=== PATIENT | female | born 1960 | race Caucasian/White ===

== ENCOUNTER 2017-07-17 10:27 | Outpatient (CLI) | payer OTHER ==
--- NOTE | 2017-07-17 12:52 | RAD ---
LEFT HIP TWO VIEWS: HISTORY: A 57-year-old female with left hip pain and low back pain following a fall. COMPARISON: 07/22/2006 FINDINGS: There is residual from a previous intramedullary maria guadalupe that had been in place to stabilize the left fe mur, which has been removed. There is some myositis ossificans, which is stable. Mild left hip christina nt arthrosis. No evidence for acute fracture. IMPRESSION: 1. No acute fracture. 2. Residual changes from prior left femur intramedullary maria guadalupe, which has been previously removed, st able from prior study. POS: [facility]
--- NOTE | 2017-07-17 12:53 | RAD ---
RIGHT HIP TWO VIEWS: HISTORY: A 57-year-old female with right hip pain following a fall several weeks ago. FINDINGS: Mild degenerative changes right hip joint. No acute fracture or dislocation. IMPRESSION: 1. No fracture or dislocation. 2. Degenerative changes. POS: [facility]
== END 2017-07-17 10:28 | disposition home or self-care (01) ==
LOC: TBSIIMAG 10:27
PROVIDERS: ATTEND Physician Assistant
DX: M25.551 Pain in right hip (principal); M54.9 Dorsalgia, unspecified; M25.552 Pain in left hip

== ENCOUNTER 2017-08-14 09:03 | Outpatient (CLI) | payer OTHER ==
--- NOTE | 2017-08-14 11:01 | CT ---
CT LUMBAR SPINE WITHOUT CONTRAST: Comparison: 01-25-09 History: Lumbar radiculopathy. Low back pain, extending down both lower extremities, right greater th an left. Technique: CT lumbar spine is performed without intravenous gadolinium administration. Multisequentia l, multiplanar imaging is performed. FINDINGS: Lumbar spine vertebral body height is maintained. There is no fracture. No spondylolisthesis or spond ylolysis. Visualized solid organs are grossly unremarkable. Symmetric attenuation of the psoas muscles. Atheros clerosis of non-aneurysmal aorta. Visualized alimentary canal is unremarkable. Coronal reformatted images do not demonstrate any abnormal alignment. T11-12: No high grade central canal stenosis or high grade neural foraminal narrowing. T12-L1: No high grade central canal stenosis. No high grade foraminal narrowing. L1-2: No high grade central canal stenosis or high grade foraminal narrowing. L2-3: No high grade central canal stenosis or high grade foraminal narrowing. L3-4: No high grade central canal stenosis or high grade foraminal narrowing. Minimal ligamentum flav um/ ===== is present. L4-5: Generalized disc bulge. No high grade central canal stenosis or high grade foraminal narrowing. L5-S1: Generalized disc bulge. No high grade central canal stenosis or high grade foraminal narrowing . IMPRESSION: No high grade central canal stenosis or high grade foraminal narrowing. POS: [facility]
== END 2017-08-14 09:04 | disposition home or self-care (01) ==
LOC: TBSIIMAG 09:03
PROVIDERS: ATTEND Neurological Surgery
DX: M54.16 Radiculopathy, lumbar region (principal)
CPT/HCPCS: 72131

== ENCOUNTER 2017-12-17 11:37 | Outpatient (CLI) | payer OTHER ==
[2017-12-17 13:33] LABS: PTT 32.3 SEC (22.9-36.1)
[2017-12-17 13:37] LABS: #Basophils 0.1 thou/uL (0.0-0.2); #Eosinphils 0.2 thou/uL (0.0-0.7); #Lymphocytes 3.3 thou/uL (1.20-3.40); #Monocytes 0.6 thou/uL (0.11-0.59); %Basophils 0.9 % (0.0-1.0); %Eosinophils 2.5 % (0.0-10.0); %Lymphocytes 35.7 % (21.0-51.0); %Monocytes 6.4 % (0.0-10.0); %Neutrophils 54.6 % (42.0-75.0); Hemoglobin 14.8 g/dL (12.0-16.0); Mean Corpuscular Hemoglobin 33.3 pg (27.0-31.0); Mean Platelet Volume 7.1 fL (7.4-10.4); Platelet Count 233 thou/uL (130-400); RBC Distribution Width 12.1 % (11.5-14.5); Red Blood Cell (RBC) Count 4.44 mill/uL (4.20-5.40); White Blood Cell (WBC) Count 9.2 thou/uL (4.8-10.8)
[2017-12-17 13:38] LABS: INR-International Normal Ratio 1.1; Prothrombin Time 14.4 SEC (12.0-14.7)
[2017-12-17 14:01] LABS: ALT (SGPT) 27 U/L (8-55); AST (SGOT) 34 U/L (5-34); Albumin 3.7 g/dL (3.5-5.0); Alkaline Phosphatase 121 U/L (40-150); Anion Gap 12 mmol/L (10-20); BUN (Urea Nitrogen) 6 mg/dL (9.8-20.1); Bilirubin, Total 0.4 mg/dL (0.2-1.2); Calc. Creatinine Clearance 0 mL/min (70-130); Calcium 9.3 mg/dL (7.8-10.44); Carbon Dioxide 23 mmol/L (22-29); Chloride 106 mmol/L (98-107); Estimated GFR-MDRD 75; Globulin 3.7 g/dL (2.4-3.5); Glucose 233 mg/dL (70-105); Potassium 3.8 mmol/L (3.5-5.1); Protein, Total 7.4 g/dL (6.0-8.3); Sodium 137 mmol/L (136-145)
== END 2017-12-17 11:38 | disposition home or self-care (01) ==
LOC: LABBT 11:37
PROVIDERS: ATTEND Internal Medicine Cardiovascular Disease
DX: Z01.818 Encounter for other preprocedural examination (principal); R07.9 Chest pain, unspecified
CPT/HCPCS: 80053; 85025; 85610; 85730; 93005; 93010

== ENCOUNTER → 2017-12-20 | Day surgery (SDC) | payer OTHER ==
[2017-12-17 11:56] VITALS: BMI 31.4
[~2017-12-20] MED LIST: Diazepam 5 MG TAB ONE; Fentanyl 100 MCG/2 ML VIAL ONE; Iopamidol 370 76% 100 ML VIAL ONE; Lidocaine 1% (PF) 30 ML VIAL ONE; Midazolam HCl 2 mg/2 ml Vial ONE
== END ==
LOC: CCL 07:55
PROVIDERS: ATTEND Internal Medicine Cardiovascular Disease
PROC: 4A023N7 Measurement of Cardiac Sampling and Pressure, Left Heart, Percutaneous Approach (ICD-10-PCS; principal; 2017-12-20)
PROC: B2151ZZ Fluoroscopy of Left Heart using Low Osmolar Contrast (ICD-10-PCS; principal; 2017-12-20)
DX: R07.9 Chest pain, unspecified (principal); B18.2 Chronic viral hepatitis C; E11.9 Type 2 diabetes mellitus without complications; E78.00 Pure hypercholesterolemia, unspecified; F41.9 Anxiety disorder, unspecified; F17.200 Nicotine dependence, unspecified, uncomplicated; I10 Essential (primary) hypertension; I20.9 Angina pectoris, unspecified; J44.9 Chronic obstructive pulmonary disease, unspecified; K21.9 Gastro-esophageal reflux disease without esophagitis; M19.90 Unspecified osteoarthritis, unspecified site; Z79.4 Long term (current) use of insulin; Z79.82 Long term (current) use of aspirin; Z79.899 Other long term (current) drug therapy; Z88.6 Allergy status to analgesic agent; Z88.8 Allergy status to other drugs, medicaments and biological substances; Z91.018 Allergy to other foods
CPT/HCPCS: 36416; 93458; 99152; 99153; C1769; G0278; J1644; J2001; J2250; J3010

== ENCOUNTER 2018-01-22 16:10 | Outpatient (CLI) | payer OTHER ==
[2018-01-22 16:49] LABS: Mean Corpuscular HGB CONC 34.3 g/dL (32.0-36.0); Mean Corpuscular Hemoglobin 34.3 pg (27.0-31.0); Mean Platelet Volume 6.9 fL (7.4-10.4); Platelet Count 236 thou/uL (130-400); Red Blood Cell (RBC) Count 4.38 mill/uL (4.20-5.40); White Blood Cell (WBC) Count 10.1 thou/uL (4.8-10.8)
[2018-01-22 16:55] LABS: Prothrombin Time 13.7 SEC (12.0-14.7)
[2018-01-22 17:10] LABS: ALT (SGPT) 28 U/L (8-55); AST (SGOT) 26 U/L (5-34); Albumin 3.7 g/dL (3.5-5.0); Alkaline Phosphatase 122 U/L (40-150); Anion Gap 13 mmol/L (10-20); BUN (Urea Nitrogen) 6 mg/dL (9.8-20.1); Bilirubin, Total 0.3 mg/dL (0.2-1.2); Calc. Creatinine Clearance 0 mL/min (70-130); Calcium 8.7 mg/dL (7.8-10.44); Carbon Dioxide 21 mmol/L (22-29); Chloride 109 mmol/L (98-107); Estimated GFR-MDRD 81; Globulin 3.2 g/dL (2.4-3.5); Glucose 131 mg/dL (70-105); Protein, Total 6.9 g/dL (6.0-8.3); Sodium 139 mmol/L (136-145)
--- NOTE | 2018-01-23 20:32 | EKG ---
Test Reason : Blood Pressure : / mmHG Vent. Rate : 076 BPM Atrial Rate : 076 BPM P-R Int : 202 ms QRS Dur : 086 ms QT Int : 438 ms P-R-T Axes : 094 066 091 degrees QTc Int : 492 ms Normal sinus rhythm Low voltage QRS Septal infarct (cited on or before 17-DEC-2017) Abnormal ECG When compared with ECG of 17-DEC-2017 11:43, No significant change was found Confirmed by CUBA MARTINEZ, . SThong (4) on 01/23/2018 8:31:54 PM Referred By: JONATHAN Confirmed By:DR. Munira BRINK MD
== END 2018-01-22 16:11 | disposition home or self-care (01) ==
LOC: LABBT 16:10
PROVIDERS: ATTEND Internal Medicine Cardiovascular Disease
DX: Z01.818 Encounter for other preprocedural examination (principal); I70.213 Atherosclerosis of native arteries of extremities with intermittent claudication, bilateral legs; R94.31 Abnormal electrocardiogram [ECG] [EKG]
CPT/HCPCS: 80053; 85027; 85610; 85730; 93005; 93010

== ENCOUNTER 2018-01-25 05:55 | Day surgery (SDC) | payer OTHER ==
[2018-01-22 16:31] VITALS: BMI 30.9
[2018-01-25 07:51] LABS: Cardiac Risk 3.7 (Less than 4.5)
[2018-01-25] MEDS ORDERED: Lidocaine 1% (PF) 30 ML VIAL ONE (08:40)
[2018-01-25] MEDS ORDERED: Fentanyl 100 MCG/2 ML VIAL ONE (09:55)
[2018-01-25] MEDS ORDERED: Midazolam HCl 2 mg/2 ml Vial ONE (09:55)
[2018-01-25] MEDS ORDERED: Heparin 10,000 UNITS/1 ML VIAL ONE (10:04)
[2018-01-25] MEDS ORDERED: Clopidogrel Bisulfate 300 MG TAB ONE (10:37)
[2018-01-25] MEDS ORDERED: Iopamidol 370 76% 100 ML VIAL ONE (11:46)
[2018-01-25] MEDS ORDERED: Iopamidol 370 76% 50 ML VIAL FS ONE (11:46)
--- NOTE | 2018-01-25 13:12 | CCL ---
CARDIAC PROCEDURE DATE OF SERVICE: 01/25/2015. PREPROCEDURE DIAGNOSIS: Peripheral vascular disease with claudication. PREPROCEDURE DIAGNOSIS: Peripheral vascular disease with claudication. PROCEDURES PERFORMED: 1. Selective abdominal aortography with runoff. 2. Selective right common iliac angiography. 3. Selective left common femoral angiography with runoff. 4. Percutaneous transluminal angioplasty with stent placement to the ostium of the right common juaquin c with an 8.0 x 27 mm balloon expandable stent. ESTIMATED BLOOD LOSS: 50 mL. COMPLICATIONS: None apparent. SAMPLES OBTAINED: ACTs. SEDATION: Under the physician's supervision, administered intravenously for moderate sedation. Pulse oximetry, heart rate and blood pressure were administered intravenously for sedation. The physician spent a total of 30 minutes of face to face during this time during sedation with the patient. FINDINGS: 1. Ostium of the right iliac artery has 90% obstruction with a 50 mmHg gradient. Widely patent righ t lower extremity circulation all the way down to good 2-vessel runoff. 2. Abdominal aorta is widely patent with no aneurysmal dilatations or dissections apparent. SUMMARY: Ms. West is a pleasant 57-year-old white female who comes to the catheterization lab for evaluation d ilatation and claudication. She was prepped and draped in the usual sterile fashion. Consents were signed and verified. Timeout was performed. Access was obtained with a 6-Tajik long sheath on the right femoral artery with ultrasound guidance. An Omni Flush catheter passed the lesion after we set up mechanic crown assembly machine ssed it over the J wire and selectively engaged the abdominal aorta where selective angiography was d one. We then advanced a 6.0 x 20 mm balloon and predilated the area of concern. We then advanced an 8.0 x 27 mm balloon expandable stent to the area of concern and this was deployed successfully. She had about a 50 mmHg gradient that went down to about 2 or 3 mmHg. She tolerated the procedure well. For anticoagulation, heparin was given. She was loaded with Plavix. Manual pressure will be held once ACT is below 200. RECOMMENDATIONS: 1. Optimum medical therapy and risk factor modification. 2. Bed rest and ambulation. 3. Dual therapy for a minimum of 3 months. 4. Follow up in the office in 1 month. POS: [facility]
== END 2018-01-25 14:00 | disposition home or self-care (01) ==
LOC: CCL 05:55
PROVIDERS: ATTEND Internal Medicine Cardiovascular Disease
PROC: 047 Lower Arteries, Dilation (ICD-10-PCS; principal; 2018-01-25)
DX: I70.213 Atherosclerosis of native arteries of extremities with intermittent claudication, bilateral legs (principal); F17.210 Nicotine dependence, cigarettes, uncomplicated; E78.00 Pure hypercholesterolemia, unspecified; F41.9 Anxiety disorder, unspecified; I10 Essential (primary) hypertension; J45.909 Unspecified asthma, uncomplicated; K21.9 Gastro-esophageal reflux disease without esophagitis; J44.9 Chronic obstructive pulmonary disease, unspecified; E11.9 Type 2 diabetes mellitus without complications; M19.90 Unspecified osteoarthritis, unspecified site; Z91.018 Allergy to other foods
CPT/HCPCS: 36416; 37221; 76942; 80061; 85347; 99152; 99153; C1725; C1769; C1876; J1644; J2001; J2250; J3010

== ENCOUNTER 2018-05-14 00:47 | Emergency (ER) | payer OTHER ==
[2018-05-14 01:50] LABS: Hemoglobin 16.8 g/dL (12.0-16.0); Mean Corpuscular HGB CONC 35.4 g/dL (32.0-36.0); Mean Corpuscular Hemoglobin 35.1 pg (27.0-31.0); Mean Corpuscular Volume 99.2 fL (78.0-98.0); Mean Platelet Volume 6.5 fL (7.4-10.4); Platelet Count 370 thou/uL (130-400); RBC Distribution Width 11.9 % (11.5-14.5); Red Blood Cell (RBC) Count 4.78 mill/uL (4.20-5.40); White Blood Cell (WBC) Count 16.2 thou/uL (4.8-10.8)
[2018-05-14 01:55] LABS: Bilirubin Negative (Negative); Blood, Urine Negative (Negative); Clarity CLEAR (Clear); Glucose, Urine (Dipstick) Negative (Negative); Leukocyte Small (Negative); Nitrite Negative (Negative); Protein, Urine (Dipstick) Negative (Neg-Trace); Specific Gravity, Urine 1.012 (1.002-1.036)
[2018-05-14 01:57] LABS: Bacteria/HPF None Seen HPF (None Seen); Hyaline Casts/LPF 0-3 HYALINE CAST LPF (0-3 Hyaline); Pathc Cast-AUWi Flag 0.29 (0-2.49); Squamous Epithelial 0-3 HPF (0-3); WBC/HPF 0-3 HPF (0-3)
[2018-05-14 01:59] LABS: ALT (SGPT) 13 U/L (8-55); AST (SGOT) 15 U/L (5-34); Alcohol Less than 10 mg/dL (Less than 10); Alkaline Phosphatase 103 U/L (40-150); Anion Gap 14 mmol/L (10-20); BUN (Urea Nitrogen) 14 mg/dL (9.8-20.1); Bilirubin, Total 0.9 mg/dL (0.2-1.2); Calc. Creatinine Clearance 0 mL/min (70-130); Calcium 9.6 mg/dL (7.8-10.44); Carbon Dioxide 21 mmol/L (22-29); Chloride 101 mmol/L (98-107); Estimated GFR-MDRD 79; Globulin 3.6 g/dL (2.4-3.5); Glucose 72 mg/dL (70-105); Potassium 3.6 mmol/L (3.5-5.1); Protein, Total 7.6 g/dL (6.0-8.3); Salicylate Less than 8.0 mg/dL (15.0-30.0); Sodium 132 mmol/L (136-145)
[2018-05-14 02:00] LABS: Alcohol Less than 10 mg/dL (Less than 10); CK (CPK) 88 U/L (29-168)
[2018-05-14 02:06] LABS: Lymphocytes 47 % (21-51); MDiff Complete? YES; Macrocytosis SLIGHT = 6-15 cells (100X) (0-5/hpf); Monocytes 1 % (0-10); Neutrophil 52 % (42-75); PLT Morphology Comment Appears Adequate; Polychromasia SLIGHT = 2-3 cells (100X) (0-2/hpf)
[2018-05-14 02:13] LABS: Amphetamine Not Detected (NotDetected); Barbiturates Screen Not Detected (NotDetected); Benzodiazepine Screen Not Detected (NotDetected); Cocaine Metabolite Screen Not Detected (NotDetected); Medtox Control Line Valid? VALID (VALID); Medtox Reader # READER 4; Methadone Not Detected (NotDetected); Methamphetamine Not Detected (NotDetected); Opiate Screen Detected (NotDetected); Oxycodone Screen Not Detected (NotDetected); Phencyclidine (PCP) Not Detected (NotDetected); THC/Cannabinoid Screen Not Detected (NotDetected); Tricyclic Screen Detected (NotDetected)
[2018-05-14] MEDS ORDERED: Acetaminophen 500 MG TAB ONE ×2 (05:02→15:30)
[2018-05-14 11:08] LABS: #Basophils 0.2 thou/uL (0.0-0.2); #Eosinphils 0.3 thou/uL (0.0-0.7); #Lymphocytes 5.5 thou/uL (1.20-3.40); #Monocytes 0.9 thou/uL (0.11-0.59); #Neutrophils 7.3 thou/uL (1.40-6.50); %Basophils 1.2 % (0.0-1.0); %Eosinophils 1.9 % (0.0-10.0); %Monocytes 6.3 % (0.0-10.0); %Neutrophils 51.7 % (42.0-75.0); Hemoglobin 15.6 g/dL (12.0-16.0); Mean Corpuscular HGB CONC 32.9 g/dL (32.0-36.0); Mean Corpuscular Hemoglobin 33.8 pg (27.0-31.0); Mean Platelet Volume 6.8 fL (7.4-10.4); Platelet Count 295 thou/uL (130-400); Red Blood Cell (RBC) Count 4.63 mill/uL (4.20-5.40); White Blood Cell (WBC) Count 14.2 thou/uL (4.8-10.8)
[2018-05-14] MEDS ORDERED: Insulin Regular 300 UNITS/3 ML VIAL ONE (13:14)
[2018-05-14] MEDS ORDERED: TICAGRELOR 90 MG TABLET PO SCH (14:45)
--- NOTE | 2018-05-14 17:03 | RAD ---
CHEST TWO VIEWS: 05/14/18 COMPARISON: 07/16/13. HISTORY: Leukocytosis. FINDINGS: Atherosclerosis of the aorta. Normal cardiac silhouette. Pulmonary vessels and hilum are normal. Cost ophrenic angles are clear. Chronic changes, without consolidation or mass. No pneumothorax or osseous abnormalities. IMPRESSION: 1. No acute cardiopulmonary process. 2. Atherosclerosis. POS: [facility]
[2018-05-14] MEDS ORDERED: Lubiprostone 24 MCG CAP PO SCH (17:30)
[2018-05-14] MEDS ORDERED: Topiramate 100 MG TAB PO SCH (17:30)
[2018-05-14] MEDS ORDERED: Lisinopril 10 MG TAB PO SCH (17:30)
[2018-05-14] MEDS ORDERED: Atorvastatin Calcium 20 MG TAB PO SCH (17:30)
== END 2018-05-14 21:28 ==
LOC: ERS 00:47
DX: R45.851 Suicidal ideations (principal); E78.5 Hyperlipidemia, unspecified; I10 Essential (primary) hypertension; F90.9 Attention-deficit hyperactivity disorder, unspecified type; F31.9 Bipolar disorder, unspecified; Z79.4 Long term (current) use of insulin; Z79.899 Other long term (current) drug therapy
CPT/HCPCS: 36415; 36416; 71046; 80053; 80306; 80307; 81003; 81015; 82550; 84443; 85025; 96360; 96361; J1815

== ENCOUNTER 2018-06-20 10:13 | Outpatient (CLI) | payer OTHER ==
--- NOTE | 2018-06-20 13:00 | CT ---
CT ABDOMEN WITH AND WITHOUT IV CONTRAST: CT PELVIS WITH AND WITHOUT IV CONTRAST: 06/20/2018 HISTORY: Abdominal pain, nonspecific lymphadenitis. The patient states bilateral lower abdominal pain, loss o f appetite, and nausea. COMPARISON: CT abdomen and pelvis done at [facility] on 01/13/2011. FINDINGS: Linear interstitial density is seen in the right middle lobe, likely related to atelectasis. The kalpesh g bases otherwise appear clear. The liver remains enlarged in craniocaudal dimensions, measuring 22.2 cm. There is a tiny, subcentimeter, jco-iuoxr-qr-characterize, hypodense lesion in the mid portion of the right kidney. The spleen, pancreas, bilateral adrenal glands, left kidney, and decompressed urinary bladder demonst rate a normal CT appearance. There is evidence of a hysterectomy. Post cholecystectomy changes are seen. Vascular calcification is seen in the abdominal aorta and involving the iliac arteries. A calcified granuloma is seen in the liver. There is a mild, nonspecific, prominent gastrohepatic lymph node, measuring 1 cm in short axis dimens ion. No enlarged aortocaval lymph nodes are seen. There is evidence of prior post surgical changes, likely related to prior internal fixation of the le ft femur, with removal of maria guadalupe. IMPRESSION: 1. No acute findings are seen in the abdomen and pelvis. 2. Stable enlargement of liver in craniocaudal dimensions. 3. Vascular calcifications. 4. Tiny fat-containing umbilical hernia. POS: [facility]
[2018-06-20] MEDS ORDERED: Iopamidol 370 76% 100 ML VIAL ONE (13:17)
== END 2018-06-20 10:14 | disposition home or self-care (01) ==
LOC: BICCT 10:13
PROVIDERS: ATTEND Physician Assistant
DX: I88.9 Nonspecific lymphadenitis, unspecified (principal); R10.9 Unspecified abdominal pain; R16.0 Hepatomegaly, not elsewhere classified; I70.90 Unspecified atherosclerosis; K42.9 Umbilical hernia without obstruction or gangrene
CPT/HCPCS: 74178

== ENCOUNTER 2018-09-05 07:25 | Outpatient (CLI) | payer OTHER ==
--- NOTE | 2018-09-05 14:19 | NM ---
NUCLEAR MEDICINE GASTRIC EMPTYING: Radiopharmaceutical: 2.2 mCi Technetium 99M Sulfur colloid, oral ingestion. Indication: Dysphasia, unspecified. FINDINGS: Using geometric mean, gastric emptying half time is calculated at 108 minutes. 86% gastric emptying o ccurs at 234 minutes, which is the termination of the exam. IMPRESSION: Gastric emptying half time calculated at 108 minutes. POS: [facility]
== END 2018-09-05 07:26 | disposition home or self-care (01) ==
LOC: NM 07:25
PROVIDERS: ATTEND Physician Assistant Medical
DX: R13.10 Dysphagia, unspecified (principal); K21.9 Gastro-esophageal reflux disease without esophagitis; R10.84 Generalized abdominal pain; R11.0 Nausea; K59.09 Other constipation
CPT/HCPCS: 78264; A9541

== ENCOUNTER 2019-02-18 12:52 | Outpatient (CLI) | payer OTHER ==
--- NOTE | 2019-02-18 14:13 | MRI ---
MRI CERVICAL SPINE WITHOUT CONTRAST: HISTORY: Cervical radiculopathy. COMPARISON: 05/19/2008 FINDINGS: Appropriate T1 marrow signal intensity of the cervical vertebrae. No fracture. No significant STIR hyperintensity to suggest vertebral body edema or ligamentous injury. The visualized brain parenchyma and spinal cord have appropriate signal intensity. C2-C3: No significant central canal stenosis or neural foraminal narrowing. C3-C4: Generalized disc bulge. Mild flattening of the thecal sac. Nevertheless, no significant stan tral canal stenosis or neural foraminal narrowing. Minimal left uncovertebral hypertrophy. C4-C5: Broad-based disc osteophyte complex with a central/right paracentral component. Ventral suba rachnoid space is maintained. Mild central canal stenosis. Neural foramina are patent. C5-C6: Central disc osteophyte complex causing mass effect upon the thecal sac and deforming the cer vical cord. No cord signal abnormality. Mild central canal stenosis. Neural foramina are patent. C6-C7: No significant central canal stenosis. Neural foramina are patent. C7-T1: No significant central canal stenosis. Neural foramina are patent. T2 hyperintensity in the left neural foramen likely due to perineural sleeve cyst. IMPRESSION: Degenerative changes of the cervical spine, as detailed above. The greatest degree of central canal stenosis is at C5-C6, secondary to disc osteophyte complex. Nevertheless, there is only mild stenosis at this level. Transcribed Date/Time: 02/18/2019 2:43 PM
== END 2019-02-18 12:53 | disposition home or self-care (01) ==
LOC: BICMRI 12:52
PROVIDERS: ATTEND Neurological Surgery
DX: M47.22 Other spondylosis with radiculopathy, cervical region (principal); M48.02 Spinal stenosis, cervical region; M25.78 Osteophyte, vertebrae
CPT/HCPCS: 72141

== ENCOUNTER 2019-06-19 10:55 | Outpatient (CLI) | payer OTHER ==
--- NOTE | 2019-06-19 11:22 | MMO ---
Bilateral MAMMO Bilat Screen DDI. CLINICAL HISTORY: Patient is 59 years old and is seen for screening. The patient has no family history of breast cancer. The patient has no personal history of cancer. VIEWS: The views performed were: bilateral craniocaudal and bilateral mediolateral oblique. FILMS COMPARED: The present examination has been compared to prior imaging studies performed at [facility] on 06/11/2014, 06/17/2015, 06/22/2016 and 07/24/2017. This study has been interpreted with the assistance of computer-aided detection. MAMMOGRAM FINDINGS: There are scattered fibroglandular densities. There are no suspicious masses, suspicious calcifications, or new areas of architectural distortion. IMPRESSION: THERE IS NO MAMMOGRAPHIC EVIDENCE OF MALIGNANCY. A ROUTINE FOLLOW-UP MAMMOGRAM IN 1 YEAR IS RECOMMENDED. ACR BI-RADS Category 1 - Negative MAMMOGRAPHY NOTE: 1. A negative mammogram report should not delay a biopsy if a dominant of clinically suspicious mass is present. 2. Approximately 10% to 15% of breast cancers are not detected by mammography. 3. Adenosis and dense breasts may obscure an underlying neoplasm. Reported by: LEVON YANG MD Electonically Signed: [id number]
== END 2019-06-19 10:56 | disposition home or self-care (01) ==
LOC: BICMAMMO 10:55
PROVIDERS: ATTEND Physician Assistant
DX: Z12.31 Encounter for screening mammogram for malignant neoplasm of breast (principal)
CPT/HCPCS: 77067

== ENCOUNTER 2019-06-26 09:32 | Outpatient (CLI) | payer OTHER ==
--- NOTE | 2019-06-26 13:10 | ULT ---
ABDOMINAL ULTRASOUND WITH DOPPLER STUDIES: INDICATIONS: Hepatomegaly. TECHNIQUE: Hepatic Doppler study is performed with color Doppler and spectral analysis to the hepatic vessels. FINDINGS: Ultrasound images show enlarged liver with increased echogenicity, suggesting fatty infiltration. The common bile duct is dilated, measured at 1.2 cm. Evidence of mild intrahepatic ductal dilatation als o noted. The patient is status post cholecystectomy. The spleen is enlarged, measuring 12 cm. The visualized pancreas is unremarkable. The kidneys are not imaged. Doppler studies show normal hepatopetal blood flow in the portal veins, hepatic vein, hepatic artery and splenic vein. IMPRESSION: 1. Hepatomegaly with evidence of diffuse fatty infiltration. 2. Dilated intrahepatic and extrahepatic biliary ducts. 3. Normal Doppler studies to the hepatic vessels. POS: [facility]
== END 2019-06-26 09:33 | disposition home or self-care (01) ==
LOC: BICULT 09:32
PROVIDERS: ATTEND Physician Assistant Medical
DX: K21.9 Gastro-esophageal reflux disease without esophagitis (principal); R16.0 Hepatomegaly, not elsewhere classified; K59.09 Other constipation; K76.0 Fatty (change of) liver, not elsewhere classified; K83.8 Other specified diseases of biliary tract
CPT/HCPCS: 76705

== ENCOUNTER 2019-10-02 00:19 | Emergency (ER) | payer OTHER ==
[2019-10-02] MEDS ORDERED: Morphine 4 MG/ML VIAL ONE (01:26)
[2019-10-02 01:46] LABS: #Basophils 0.1 thou/uL (0.0-0.2); #Eosinphils 0.1 thou/uL (0.0-0.7); #Lymphocytes 2.9 thou/uL (1.20-3.40); #Monocytes 0.6 thou/uL (0.11-0.59); #Neutrophils 10.3 thou/uL (1.40-6.50); %Basophils 0.9 % (0.0-1.0); %Eosinophils 0.9 % (0.0-10.0); %Lymphocytes 20.6 % (21.0-51.0); %Monocytes 3.9 % (0.0-10.0); %Neutrophils 73.7 % (42.0-75.0); Hemoglobin 15.5 g/dL (12.0-16.0); Mean Corpuscular HGB CONC 33.5 g/dL (32.0-36.0); Mean Corpuscular Hemoglobin 33.3 pg (27.0-31.0); Mean Corpuscular Volume 99.4 fL (78.0-98.0); Mean Platelet Volume 6.7 fL (7.4-10.4); Platelet Count 302 thou/uL (130-400); RBC Distribution Width 11.7 % (11.5-14.5); Red Blood Cell (RBC) Count 4.64 mill/uL (4.20-5.40)
[2019-10-02 01:52] LABS: Prothrombin Time 13.2 SEC (12.0-14.7)
[2019-10-02 02:03] LABS: Phosphorus 3.6 mg/dL (2.3-4.7)
[2019-10-02 02:04] LABS: ALT (SGPT) 16 U/L (8-55); AST (SGOT) 16 U/L (5-34); Albumin 4.2 g/dL (3.5-5.0); Alkaline Phosphatase 95 U/L (40-110); Anion Gap 14 mmol/L (10-20); BUN (Urea Nitrogen) 11 mg/dL (9.8-20.1); Bilirubin, Total 0.5 mg/dL (0.2-1.2); Calc. Creatinine Clearance 0 mL/min (70-130); Calcium 9.6 mg/dL (7.8-10.44); Carbon Dioxide 23 mmol/L (22-29); Chloride 105 mmol/L (98-107); Estimated GFR-MDRD 74; Globulin 3.4 g/dL (2.4-3.5); Glucose 122 mg/dL (70-105); Magnesium 2.1 mg/dL (1.6-2.6); Potassium 3.9 mmol/L (3.5-5.1); Protein, Total 7.6 g/dL (6.0-8.3); Sodium 138 mmol/L (136-145)
[2019-10-02] MEDS ORDERED: HYDROcodone/Acetaminophen 5/325 mg Tablet ONE (02:20)
--- NOTE | 2019-10-02 08:01 | RAD ---
Chest AP view INDICATION: Preoperative evaluation COMPARISON: June 15, 2010 and July 16, 2013 FINDINGS: Lungs:There is new patchy interstitial and airspace opacity involving the left lower lobe some of whi ch could reflect subsegmental volume loss. This is superimposed on moderate COPD changes are stable. There is a stable calcified granuloma in the left upper lobe. Cardiac silhouette:The cardiomediastinal silhouette appears within normal limits. Pulmonary vasculature:Normal Pleural spaces:No pleural effusion or pneumothorax is demonstrated. Upper abdomen:No abnormality seen. Osseous structures: There is partial visualization of a comminuted proximal left humerus fracture, be tter detailed on separate performed radiographs of the left shoulder dated October 02, 2019. Additional findings:None. IMPRESSION: 1. Patchy interstitial and airspace opacity left lower lobe may reflect subsegmental volume loss. Rep eat 2 view chest x-ray is recommended. Pneumonia is not excluded. 2. COPD change and findings of prior granulomatous disease. 3. Comminuted left proximal humerus fracture.
--- NOTE | 2019-10-02 08:10 | RAD ---
Radiograph left shoulder 2 views: DATE: 10/02/2019 1:39 AM HISTORY: 59-year-old female with acute, traumatic shoulder pain after fall FINDINGS: There is a comminuted fracture of the humeral head with mild displacement. There is mild inferior sub luxation of the glenohumeral joint. IMPRESSION: Acute, comminuted, mildly displaced left humeral head fracture.
--- NOTE | 2019-10-02 08:40 | RAD ---
LEFT ELBOW 1 VIEW: HISTORY: Left elbow pain following an injury, fell out of bed. FINDINGS: Comminuted displaced ulnar olecranon fracture is seen on the single lateral view. Evidence for elbow joint effusion. IMPRESSION: Markedly comminuted displaced ulna olecranon fracture. POS: [facility]
== END 2019-10-02 03:08 | disposition home or self-care (01) ==
LOC: ERS 00:19
DX: S52.022A Displaced fracture of olecranon process without intraarticular extension of left ulna, initial encounter for closed fracture (principal); S42.212A Unspecified displaced fracture of surgical neck of left humerus, initial encounter for closed fracture; E78.5 Hyperlipidemia, unspecified; I10 Essential (primary) hypertension; E78.00 Pure hypercholesterolemia, unspecified; E11.9 Type 2 diabetes mellitus without complications; F31.9 Bipolar disorder, unspecified; F20.9 Schizophrenia, unspecified; F17.210 Nicotine dependence, cigarettes, uncomplicated; Z79.899 Other long term (current) drug therapy; Z79.4 Long term (current) use of insulin; Z79.82 Long term (current) use of aspirin; W06.XXXA Fall from bed, initial encounter
CPT/HCPCS: 29105; 71045; 80053; 83735; 84100; 85025; 85610; 86850; 86900; 86901; 93005; 96374; J2270

== ENCOUNTER 2019-10-04 16:08 | Observation (INO) | payer OTHER ==
[~2019-10-04 16:08] MED LIST changes: -Diazepam 5 MG TAB ONE; -Fentanyl 100 MCG/2 ML VIAL ONE; -Iopamidol 370 76% 100 ML VIAL ONE; +Iopamidol-370 76% 500 ML 1 ML ONE; -Lidocaine 1% (PF) 30 ML VIAL ONE; -Midazolam HCl 2 mg/2 ml Vial ONE
[2019-10-04 17:31] LABS: #Basophils 0.1 thou/uL (0.0-0.2); #Eosinphils 0.2 thou/uL (0.0-0.7); #Lymphocytes 3.8 thou/uL (1.20-3.40); #Monocytes 0.9 thou/uL (0.11-0.59); #Neutrophils 10.4 thou/uL (1.40-6.50); %Basophils 0.6 % (0.0-1.0); %Eosinophils 1.4 % (0.0-10.0); %Lymphocytes 24.8 % (21.0-51.0); %Monocytes 5.9 % (0.0-10.0); %Neutrophils 67.3 % (42.0-75.0); Hemoglobin 12.7 g/dL (12.0-16.0); Mean Corpuscular HGB CONC 32.6 g/dL (32.0-36.0); Mean Corpuscular Hemoglobin 32.5 pg (27.0-31.0); Mean Corpuscular Volume 99.8 fL (78.0-98.0); Mean Platelet Volume 6.9 fL (7.4-10.4); Platelet Count 286 thou/uL (130-400); RBC Distribution Width 11.7 % (11.5-14.5); Red Blood Cell (RBC) Count 3.91 mill/uL (4.20-5.40); White Blood Cell (WBC) Count 15.4 thou/uL (4.8-10.8)
--- NOTE | 2019-10-04 17:48 | RAD ---
EXAM: CHEST ONE VIEW: 10/04/19 HISTORY: Chest pain, left shoulder pain. FINDINGS: Comminuted fracture of the humeral head and neck region. Minimal increased linear and interstitial ma rkings noted bilaterally somewhat more prominent in the bases but stable from prior study. Biapical p leural thickening. IMPRESSION: Stable appearing chest. Comminuted proximal humeral head and neck fracture with more displacement tresa n the prior study. Stable. No confluent pneumonia or overt edema. POS: [facility]
[2019-10-04 17:55] LABS: ALT (SGPT) 39 U/L (8-55); AST (SGOT) 25 U/L (5-34); Albumin 3.9 g/dL (3.5-5.0); Alkaline Phosphatase 105 U/L (40-110); Anion Gap 14 mmol/L (10-20); BUN (Urea Nitrogen) 10 mg/dL (9.8-20.1); Bilirubin, Total 0.4 mg/dL (0.2-1.2); CK (CPK) 290 U/L (29-168); Calc. Creatinine Clearance 0 mL/min (70-130); Calcium 8.7 mg/dL (7.8-10.44); Carbon Dioxide 22 mmol/L (22-29); Chloride 107 mmol/L (98-107); Estimated GFR-MDRD 84; Globulin 2.8 g/dL (2.4-3.5); Glucose 198 mg/dL (70-105); Lipase 11 U/L (8-78); Potassium 3.9 mmol/L (3.5-5.1); Protein, Total 6.7 g/dL (6.0-8.3); Sodium 139 mmol/L (136-145)
[2019-10-04] MEDS ORDERED: Fentanyl 100 MCG/2 ML VIAL ONE (18:37)
[2019-10-04] MEDS ORDERED: Lorazepam 2 MG/ML VIAL ONE (18:37)
[2019-10-04] MEDS ORDERED: Aspirin Chewable 81 MG TAB ONE (18:37)
--- NOTE | 2019-10-04 19:26 | CT ---
CTA Angio Chest W WO Con 10/04/2019 5:47 PM Indication: Intermittent chest pain, located along the left breast Technique: Multiple CTA images were obtained of the thorax with IV contrast. 3-D rendering: MIP vlad nstructed images were created and reviewed. Comparison: CT the abdomen and pelvis dated June 20, 2018 Findings: Pulmonary arteries: No central or segmental pulmonary embolus is evident. Heart and Aorta: There are coronary artery and thoracic aortic calcifications Mediastinum:Normal appearing. No enlarged lymph nodes. Lungs:There is a persistent areas of subsegmental volume loss within the lingula adjacent to prominen t pericardial fat pad. There is also subsegmental volume loss within the left lower lobe and right middle lobe. Pleural space: Clear. Upper Abdomen: No acute abnormality. Osseous Structures: No acute osseous abnormality. Soft tissues:No abnormality. Other findings:None. Impression: No central or segmental pulmonary embolus. Nonspecific areas of subsegmental volume loss involving the lung bases.
[2019-10-04] MEDS ORDERED: Morphine 4 MG/ML VIAL ONE (20:03)
[2019-10-04 21:10] LABS: Troponin I Less than 0.010 ng/mL (< 0.028)
[2019-10-04] MEDS ORDERED: HYDROcodone/Acetaminophen 7.5/325 mg Tablet PO PRN (22:12)
[2019-10-04] MEDS ORDERED: Acetaminophen 325 MG TAB PO PRN (22:12)
[2019-10-04] MEDS ORDERED: Morphine 2 MG/ML SYRINGE SLOW IVP PRN (22:16)
[2019-10-04] MEDS ORDERED: Dextrose 50% Abboject 50 ML SYRINGE SLOW IVP PRN (22:17)
[2019-10-04] MEDS ORDERED: HumaLOG 300 UNITS/3 ML VIAL SC PRN ×2 (22:17)
[2019-10-04] MEDS ORDERED: Dextrose 5% in Water 1,000 ML IV PRN (22:17)
[2019-10-04] MEDS: HYDROcodone/Acetaminophen 7.5/325 mg Tablet PO PRN (22:42)
[2019-10-04] MEDS: Nicotine 14 MG PATCH TD SCH (23:51)
[2019-10-04] MEDS ORDERED: Amitriptyline HCl 100 MG TAB PO SCH (23:59)
[2019-10-04] MEDS ORDERED: Atorvastatin Calcium 20 MG TAB PO SCH (23:59)
--- NOTE | 2019-10-05 00:18 | HP ---
CHIEF COMPLAINT: Chest pain. PRIMARY CARE: Jania Fraser. HISTORY OF PRESENT ILLNESS: Ms. West is a 59-year-old female who presented to the emergency room today for evaluation of left chest pain; reports it as a squeezing and intermittent. She reports that the chest pain improved after she was given some nitroglycerin by EMS en route. She also reports significant left arm pain after she sustained a fall on Sunday of this past week and had a proximal humerus fracture and an olecranon fracture which is closed. She was splinted initially for that and sent home. She returned today for chest pain, she reports after she woke up from a nap, she started having this chest pain. She does have some history of coronary artery disease, underwent a cardiac cath in [address] Morgan. At that time, procedure note reports LAD patent with some mild disease. LCX with a lesion at a trifurcation on RCA with mufe-ij-bowdtqyg disease and severe ostial right common iliac disease. Dr. Morgan put her on Brilinta, which she stopped taking Sunday night after she broke her left arm. Reports that Dr. Martinez will see her in the office on Sunday and that she was instructed to stop taking the Brilinta for at least 5 days. She has pertinent other medical comorbidities, diabetes, hyperlipidemia, and hypertension. EKG in the emergency room shows sinus tach, beats per minute 107. ST segments are normal. T-waves are normal. Troponin x2 so far has been undetectable. She did have an elevated D-dimer in the emergency room and underwent a CTA chest, which was negative for pulmonary emboli. She will be admitted for further management of the left-sided chest pain. REVIEW OF SYSTEMS: The patient reports left arm pain, reports left-sided chest pain, reports some shortness of breath and some nausea. Denied any vomiting. Denies any abdominal pain. All other systems reviewed and are negative unless mentioned above or in HPI. PAST MEDICAL HISTORY: Pertinent for hyperlipidemia, hypertension, high cholesterol, and diabetes type 2. SURGICAL HISTORY: Has had multiple breast surgeries, sinus surgery, cholecystectomy, appendectomy, hysterectomy, and stents placed in her leg. PSYCHIATRIC HISTORY: Bipolar, schizophrenia. She does have a history of suicide attempts. SOCIAL HISTORY: She smokes a pack a day. Denies any alcohol use or drug use. KNOWN ALLERGIES: Chocolate flavor, corn, Geodon, Toradol, tramadol. MEDICATIONS: 1. Tylenol with Codeine 1 tablet p.o. q.6 hours. 2. ProAir 2 puffs q.6. 3. Amitriptyline 100 mg p.o. 4. Aspirin 81 mg p.o. daily. 5. Atorvastatin 20 mg p.o. at bedtime. 6. Clonazepam 2 mg p.o. t.i.d. as needed. 7. Benadryl 25 mg p.o. q.6 hours as needed. 8. Trulicity 1.5 mg subcu q.7 days. 9. NovoLog 70/30, 50 units subcu b.i.d. 10. Isosorbide 30 mg p.o. daily. 11. Protonix 40 mg p.o. b.i.d. 12. 25 mg p.o. q.8 hours as needed. 13. Brilinta 90 mg p.o. b.i.d. 14. Topamax 200 mg p.o. daily. 15. Trazodone 150 mg p.o. at bedtime. PHYSICAL EXAMINATION: VITAL SIGNS: Blood pressure 151/91, pulse is 95, respirations are 18, temperature is 98.2, pO2 sats are 96% on room air. CONSTITUTIONAL: The patient is alert and oriented to person, place, and time. She appears nontoxic HEAD: Atraumatic and normocephalic. EYES: Pupils are equally round and reactive to light. Conjunctiva is normal. ENT: Mouth exam is normal. Mucous membranes are moist. NECK: Normal range of motion. No JVD is noted. RESPIRATORY: Breath sounds are clear. Chest expansion is equal. CARDIOVASCULAR: Regular rate and rhythm. ABDOMEN: Nontender. Bowel sounds are heard. BACK: Normal inspection. No tenderness to palpation. EXTREMITIES: Upper extremity; left upper extremity is in the splint and she is in the sling. She is able to move all fingers, both hands. Radial pulses are normal. Lower extremity; normal range of motion. Normal strength. Pedal pulses are normal. NEURO: She is alert and oriented to person, place, and time. Speech is normal. SKIN: Warm, dry, normal in color that it is visualized. PSYCHIATRIC: Has a normal affect. She is alert and oriented x3. PLAN/ASSESSMENT: 1. Chest pain, left sided. Troponins will be trended. Stress test ordered in the morning. Lipids fasting ordered for in the morning. TSH has also been ordered. 2. History of hypertension. The patient reports that she has been taken off her blood pressure medications due to her being normotensive. 3. History of dyslipidemia. We will restart home medications. We will recheck fasting lipids in a.m. 4. History of coronary artery disease. See #1. 5. History of diabetes type 2. Accu-Cheks a.c. and at bedtime. Sliding scale insulin for coverage as needed. Restart NovoLog 70/30 for coverage. 6. Deep venous thrombosis prophylaxis with SCDs. CTA chest was performed in the emergency room today, which was negative. We will hold Brilinta for now, as the patient is likely a surgical candidate and needs to be evaluated by Ortho for further determination. 7. Gastrointestinal prophylaxis has been started. 8. Left arm fracture. This is in a splint. We will ask Occupational Therapy to evaluate. Pain medications will be ordered as needed. 9. Hospital course dependent on clinical findings. Job ID: [id number]
[2019-10-05 00:29] VITALS: BMI 30.2
[2019-10-05 00:44] LABS: Troponin I Less than 0.010 ng/mL (< 0.028)
[2019-10-05 02:36] LABS: Bacteria/HPF None Seen HPF (None Seen); Bilirubin Negative (Negative); Blood, Urine Negative (Negative); Clarity Clear (Clear); Glucose, Urine (Dipstick) Normal (Negative); Leukocyte 250 Leu/uL (Negative); Nitrite Negative (Negative); Protein, Urine (Dipstick) 10 mg/dL (Neg-Trace); Urobilinogen 3 mg/dL (Less than 2)
[2019-10-05 02:37] LABS: Cocaine Metabolite Screen Not Detected (NotDetected); Medtox Reader # READER 4; Methamphetamine Not Detected (NotDetected); Opiate Screen Detected (NotDetected); Phencyclidine (PCP) Not Detected (NotDetected); THC/Cannabinoid Screen Detected (NotDetected)
[2019-10-05 02:38] LABS: Amphetamine Not Detected (NotDetected); Barbiturates Screen Not Detected (NotDetected); Benzodiazepine Screen Detected (NotDetected); Medtox Control Line Valid? VALID (VALID); Methadone Not Detected (NotDetected); Oxycodone Screen Not Detected (NotDetected); Tricyclic Screen Detected (NotDetected)
[2019-10-05 02:44] LABS: Urine Culture Reflex No No
[2019-10-05] MEDS: HYDROcodone/Acetaminophen 7.5/325 mg Tablet PO PRN ×3 (02:49→12:15)
[2019-10-05 05:17] LABS: #Basophils 0.1 thou/uL (0.0-0.2); #Eosinphils 0.3 thou/uL (0.0-0.7); #Lymphocytes 5.5 thou/uL (1.20-3.40); #Monocytes 0.9 thou/uL (0.11-0.59); #Neutrophils 7.4 thou/uL (1.40-6.50); %Basophils 0.9 % (0.0-1.0); %Eosinophils 2.4 % (0.0-10.0); %Lymphocytes 38.3 % (21.0-51.0); %Monocytes 6.4 % (0.0-10.0); %Neutrophils 52.1 % (42.0-75.0); Hemoglobin 12.1 g/dL (12.0-16.0); Mean Corpuscular HGB CONC 31.8 g/dL (32.0-36.0); Mean Corpuscular Hemoglobin 31.9 pg (27.0-31.0); Mean Platelet Volume 6.9 fL (7.4-10.4); Platelet Count 286 thou/uL (130-400); RBC Distribution Width 11.7 % (11.5-14.5); Red Blood Cell (RBC) Count 3.81 mill/uL (4.20-5.40); White Blood Cell (WBC) Count 14.2 thou/uL (4.8-10.8)
[2019-10-05 05:44] LABS: ALT (SGPT) 30 U/L (8-55); AST (SGOT) 16 U/L (5-34); Albumin 3.7 g/dL (3.5-5.0); Alkaline Phosphatase 97 U/L (40-110); Anion Gap 13 mmol/L (10-20); BUN (Urea Nitrogen) 8 mg/dL (9.8-20.1); Bilirubin, Total 0.5 mg/dL (0.2-1.2); Calc. Creatinine Clearance 101 mL/min (70-130); Calcium 8.9 mg/dL (7.8-10.44); Carbon Dioxide 24 mmol/L (22-29); Cardiac Risk 2.7 (Less than 4.5); Chloride 107 mmol/L (98-107); Cholesterol 109 mg/dl (< 200 Desired); Estimated GFR-MDRD 87; Glucose 117 mg/dL (70-105); HDL Cholesterol 41 mg/dL (>60 Neg Risk); LDL Cholesterol, Calculated 55 mg/dL; Potassium 3.6 mmol/L (3.5-5.1); Protein, Total 6.7 g/dL (6.0-8.3); Sodium 140 mmol/L (136-145); Triglycerides 66 mg/dL (Less than 150)
[2019-10-05] MEDS: Aspirin Chewable 81 MG TAB PO SCH (08:03)
[2019-10-05] MEDS: Topiramate 100 MG TAB PO SCH (08:05)
[2019-10-05] MEDS: Senokot S 8.6-50 MG TAB PO SCH (08:05)
[2019-10-05] MEDS ORDERED: Famotidine 20 MG TAB PO SCH (09:00)
[2019-10-05] MEDS ORDERED: Enoxaparin Sodium 40 MG/0.4 ML SYRINGE SC SCH (09:00)
[2019-10-05] MEDS: Isosorbide Mononitrate (ER) 30 MG TAB PO SCH (11:38)
[2019-10-05] MEDS: HumuLIN 70/30 (300 UNITS/3 ML VIAL) SC SCH ×2 (11:39→21:54)
--- NOTE | 2019-10-05 14:03 | PDOC.HOSPP ---
- Subjective Subjective: Seen and examined. Patient not having any significant chest pain. She is having pain in the arm and shoulder from fracture. This a.m. she was open to nuclear medicine stress test. When I informed her that if the test came back negative I would discharge her she stated that she would need to stay in the hospital for several days to get away from her family, get good sleep, and she needed strong pain medicines. I told her that was not an option and she would need to participate with her care. - Objective Vital Signs & Weight: Vital Signs (12 hours) Temp Pulse Resp BP Pulse Ox 10/05/19 10:56 98.4 F 84 18 116/67 93 L 10/05/19 07:43 97.7 F 96 20 126/64 92 L 10/05/19 02:15 97.9 F 103 H 18 125/65 96 Weight Weight 160 lb I&O: 10/04/19 10/05/19 10/06/19 06:59 06:59 06:59 Intake Total 240 Output Total 225 Balance 15 Result Diagrams: 10/05/19 05:02 10/05/19 05:02 Additional Labs: Accuchecks 10/05/19 10:56 POC Glucose 121 H Radiology Reviewed by me: Yes Hospitalist ROS - Review of Systems All other systems reviewed; all pertinent +/- noted in HPI/Subj - Medication Medications: Active Medications Generic Name Dose Route Start Last Admin Trade Name Freq PRN Reason Stop Dose Admin Aspirin 81 mg 10/05/19 09:00 10/05/19 08:03 Aspirin Chewable PO 81 mg DAILY NAA Administration Insulin Human Isoph/Insulin Regular 50 units 10/05/19 09:00 10/05/19 11:39 Humulin 70/30 SC 50 unit BID NAA Administration Isosorbide Mononitrate 30 mg 10/05/19 09:00 10/05/19 11:38 Imdur Er PO 30 mg DAILY NAA Administration Nicotine 14 mg 10/04/19 23:00 10/04/19 23:51 Nicoderm Patch TD Not Given Q24HR NAA Pantoprazole Sodium 40 mg 10/05/19 09:00 10/05/19 08:05 Protonix PO 40 mg BID NAA Administration Senna/Docusate Sodium 2 tab 10/05/19 09:00 10/05/19 08:05 Senokot S PO 2 tab BID NAA Administration Topiramate 200 mg 10/05/19 09:00 10/05/19 08:05 Topamax PO 200 mg DAILY NAA Administration - Exam General Appearance: NAD, awake alert Eye: anicteric sclera ENT: normocephalic atraumatic, moist mucosa Neck: supple, symmetric, no lymphadenopathy Heart: no murmur, no gallops, no rubs, normal peripheral pulses Respiratory: CTAB, no wheezes, no rales, no ronchi, normal chest expansion, no tachypnea Gastrointestinal: soft, non-tender, no guarding, no rigidity Extremities: no edema Extremities - other findings: Arm in sling. Skin: no rashes Neurological: cranial nerve grossly intact, no focal deficits Musculoskeletal: generalized weakness Psychiatric: normal affect, normal behavior, A&O x 3 Hosp A/P (1) Fracture, humerus closed Code(s): S42.309A - UNSP FRACTURE OF SHAFT OF HUMERUS, UNSP ARM, INIT Status: Acute (2) Arm pain Status: Acute (3) Bipolar 1 disorder Code(s): F31.9 - BIPOLAR DISORDER, UNSPECIFIED Status: Acute (4) Depression Code(s): F32.9 - MAJOR DEPRESSIVE DISORDER, SINGLE EPISODE, UNSPECIFIED Status : Acute (5) Obesity Code(s): E66.9 - OBESITY, UNSPECIFIED Status: Acute (6) IDDM (insulin dependent diabetes mellitus) Code(s): [id number] - Status: Acute (7) HTN (hypertension) Code(s): I10 - ESSENTIAL (PRIMARY) HYPERTENSION Status: Acute (8) HLD (hyperlipidemia) Code(s): E78.5 - HYPERLIPIDEMIA, UNSPECIFIED Status: Acute - Plan Plan: medical unit with telemetry nuclear medicine stress test rule out reversible ischemia continuous telemetry to monitor for arrhythmia low clinical suspicion for cardiac origin of chest pain, patient is telling me she has shoulder pain at this time in the setting of a fracture Patient has outpatient follow-up scheduled with orthopedic surgery Dr. Martinez this week No further narcotic medications will be given if she does not cooperate with her care no Liz catheter indications urinary tract infection, starting oral antibiotics long and short acting insulin for glucose control blood pressure control continue other home medications as able G.I. prophylaxis DVT prophylaxis Disposition: No additional narcotics will be given to patient in the night. Please do not page convertible top installer for pain medications.
[2019-10-05] MEDS: Nitrofurantoin Macrocrystal 50 MG CAP PO SCH ×2 (14:17→16:42)
[2019-10-05] MEDS: Acetaminophen/Codeine 30-300mg Tablet PO PRN ×2 (17:41→21:51)
[2019-10-05] MEDS: Atorvastatin Calcium 20 MG TAB PO SCH (21:50)
[2019-10-05] MEDS: Amitriptyline HCl 100 MG TAB PO SCH (21:51)
[2019-10-05] MEDS: clonazePAM 0.5 MG TAB PO PRN (21:53)
[2019-10-06] MEDS: Nitrofurantoin Macrocrystal 50 MG CAP PO SCH ×5 (00:21→21:39)
[2019-10-06] MEDS: Senokot S 8.6-50 MG TAB PO SCH ×3 (00:23→21:39)
[2019-10-06] MEDS: Nicotine 14 MG PATCH TD SCH ×2 (00:23→21:40)
[2019-10-06] MEDS: Acetaminophen/Codeine 30-300mg Tablet PO PRN ×5 (01:53→22:22)
[2019-10-06] MEDS ORDERED: CEFAZOLIN 2 GM in Premix Bag 1 BAG IVPB SCH (09:15)
--- NOTE | 2019-10-06 09:20 | PDOC.HOSPP ---
- Subjective Encounter Date: 10/06/19 Encounter Time: 11:20 Subjective: Patient very anxious, states she can't do the stress test. Does state that she takes 2mg Klonopin TID at home religiously, has not been on it in the hospital. I asked if she would be willing to try the stress test again if we pretreat with Valium and she eventually agreed so that she can get the surgery on her arm. - Objective Vital Signs & Weight: Vital Signs (12 hours) Temp Pulse Resp BP Pulse Ox 10/06/19 08:03 97.6 F 86 16 134/67 97 10/06/19 04:12 97.8 F 91 18 141/82 H 95 10/05/19 23:43 97.9 F 94 18 148/77 H 95 Weight Weight 160 lb I&O: 10/05/19 10/06/19 10/07/19 06:59 06:59 06:59 Intake Total 240 1250 Output Total 225 750 600 Balance 15 500 -600 Result Diagrams: 10/05/19 05:02 10/05/19 05:02 Additional Labs: Accuchecks 10/06/19 10/05/19 10/05/19 04:43 20:44 17:04 POC Glucose 181 H 150 H 112 H 10/05/19 10/04/19 10:56 22:11 POC Glucose 121 H 154 H Hospitalist ROS - Review of Systems Constitutional: denies: fever, chills Respiratory: denies: cough, shortness of breath Cardiovascular: denies: chest pain, palpitations, orthopnea Gastrointestinal: denies: nausea, vomiting, abdominal pain Musculoskeletal: reports: shoulder pain, arm pain - Medication Medications: Active Medications Generic Name Dose Route Start Last Admin Trade Name Freq PRN Reason Stop Dose Admin Acetaminophen 650 mg 10/04/19 22:12 10/05/19 16:42 Tylenol PO 650 mg Q4H PRN Administration Headache/Fever/Mild Pain (1-3) Acetaminophen/Codeine Phosphate 2 tab 10/05/19 17:08 10/06/19 05:52 Tylenol #3 PO 2 tab Q4H PRN Administration Moderate to Severe Pain (6-10) Amitriptyline HCl 100 mg 10/05/19 21:00 10/05/19 21:51 Elavil PO 100 mg HS NAA Administration Aspirin 81 mg 10/05/19 09:00 10/05/19 08:03 Aspirin Chewable PO 81 mg DAILY [facility] Administration Atorvastatin Calcium 20 mg 10/05/19 21:00 10/05/19 21:50 Lipitor PO 20 mg HS [facility] Administration Clonazepam 0.5 mg 10/05/19 17:25 10/05/19 21:53 Klonopin PO 0.5 mg BIDPRN PRN Administration Anxiety/Agitation Insulin Human Isoph/Insulin Regular 50 units 10/05/19 09:00 10/05/19 21:54 Humulin 70/30 SC 50 unit BID [facility] Administration Isosorbide Mononitrate 30 mg 10/05/19 09:00 10/05/19 11:38 Imdur Er PO 30 mg DAILY [facility] Administration Nicotine 14 mg 10/04/19 23:00 10/06/19 00:23 Nicoderm Patch TD Not Given Q24HR [facility] Nitrofurantoin Macrocrystals 100 mg 10/05/19 13:00 10/06/19 00:21 Macrodantin PO 100 mg QID [facility] Administration Pantoprazole Sodium 40 mg 10/05/19 09:00 10/05/19 21:50 Protonix PO 40 mg BID [facility] Administration Senna/Docusate Sodium 2 tab 10/05/19 09:00 10/06/19 00:23 Senokot S PO Not Given BID [facility] Topiramate 200 mg 10/05/19 09:00 10/05/19 08:05 Topamax PO 200 mg DAILY [facility] Administration - Exam General - other findings: sleeping, got agitated and upset when I woke her up ENT: moist mucosa Heart: RRR, no murmur, no gallops, no rubs Respiratory: CTAB, no wheezes, no rales, no ronchi Gastrointestinal: soft, non-tender, non-distended, normal bowel sounds Musculoskeletal - other findings: LUE in sling Psychiatric: A&O x 3 Psychiatric - other findings: anxious, agitated Hosp A/P (1) Chest pain, rule out acute myocardial infarction Code(s): R07.9 - CHEST PAIN, UNSPECIFIED Status: Resolved (2) Fracture, humerus closed Code(s): S42.309A - UNSP FRACTURE OF SHAFT OF HUMERUS, UNSP ARM, INIT Status: Acute (3) Bipolar 1 disorder Code(s): F31.9 - BIPOLAR DISORDER, UNSPECIFIED Status: Chronic (4) Depression Code(s): F32.9 - MAJOR DEPRESSIVE DISORDER, SINGLE EPISODE, UNSPECIFIED Status : Chronic (5) HLD (hyperlipidemia) Code(s): E78.5 - HYPERLIPIDEMIA, UNSPECIFIED Status: Chronic (6) HTN (hypertension) Code(s): I10 - ESSENTIAL (PRIMARY) HYPERTENSION Status: Chronic (7) IDDM (insulin dependent diabetes mellitus) Code(s): [id number] - Status: Chronic (8) Obesity Code(s): E66.9 - OBESITY, UNSPECIFIED Status: Chronic - Plan Will try to obtain stress test. Cardiology consult for cardiac clearance for surgery. Resting portion today as patient drank coffee this AM. Stress portion tomorrow.
--- NOTE | 2019-10-06 09:33 | CON ---
DATE OF CONSULTATION: This is Jony Ulrich PA-C dictating a report for Werner Martinez MD. HISTORY OF PRESENT ILLNESS: We were asked to see the patient for left shoulder fracture and a left elbow fracture. The patient fell this past Sunday, was supposed to follow up with us in clinic today, but she had had chest pain last night, so she was admitted for this. She would adamantly like to have her arm fixed while she is in and not follow up in. As long as she is medically cleared, we can probably get this done. Denies any numbness and tingling into the hand. She is in a sling and a splint. She denies she is having anymore chest pain, but still she needs to be medically cleared. We also talked about some lifestyle changes for her, which she will work on. PAST MEDICAL HISTORY: Hyperlipidemia, hypertension, cholesterol, diabetes. PAST SURGICAL HISTORY: Breast surgery, sinus surgery, cholecystectomy, appendectomy, hysterectomy, and stents placed. PSYCHIATRIC HISTORY: She does have bipolar schizophrenia. SOCIAL HISTORY: She continues to smoke a pack or so a day. No alcohol or drug use. ALLERGIES: 1. CHOCOLATE FLAVOR. 2. CORN. 3. GEODON. 4. TORADOL. 5. TRAMADOL. HOME MEDICATIONS: 1. Tylenol. 2. ProAir. 3. Amitriptyline. 4. Aspirin. 5. Atorvastatin. 6. Clonazepam. 7. Benadryl. 8. Trulicity. 9. NovoLog. 10. Isosorbide. 11. Protonix. 12. Brilinta. 13. Topamax. 14. Trazodone. REVIEW OF SYSTEMS: Denies any chest pain, currently little bit short of breath, but she is getting breathing treatments while she is in the hospital, and left upper extremity pain. The patient also states she has some chronic pain issues and I told her this may be a little arduous for her after surgery, otherwise rest of review of systems is negative. PHYSICAL EXAMINATION: GENERAL: Well-nourished, well-developed female, resting on a bed in room 242, currently in no acute distress unless she moves her left upper extremity. HEENT: Normal exam. GENERAL: Speech clear, fluent. Oriented x3. NECK: Supple trachea midline. EXTREMITIES: Upper extremities, left upper extremity is in a sling and splint, but she is able to wiggle her fingers well and she has good sensations. Right upper extremity, normal exam. VITAL SIGNS: Respiratory rate 20. MUSCULOSKELETAL: Gait; she is walking around the room without any difficulty, but it does cause her some pain in that left upper extremity. Her gait is stable. DP and PT pulses are intact and symmetric. ASSESSMENT: 1. Admitted for cardiac issues. 2. Fall with ensuing left humerus fracture proximally and distally. PLAN: Currently, she states she has been n.p.o., but we will get her truly n.p.o. at this point. We talked about putting her on the surgery schedule today. She will need an ORIF of the left proximal humerus and left distal humerus. I have gone over the risks and benefits of surgery with the patient. She understands the risks and she is amenable to go forth with surgeries. Her questions and concerns have been addressed. Job ID: [id number]
[2019-10-06] MEDS: Topiramate 100 MG TAB PO SCH (10:16)
[2019-10-06] MEDS: Isosorbide Mononitrate (ER) 30 MG TAB PO SCH (10:17)
[2019-10-06] MEDS: clonazePAM 0.5 MG TAB PO PRN (10:21)
[2019-10-06] MEDS: HumuLIN 70/30 (300 UNITS/3 ML VIAL) SC SCH ×2 (10:22→21:39)
[2019-10-06] MEDS: Aspirin Chewable 81 MG TAB PO SCH (10:40)
[2019-10-06] MEDS ORDERED: PROVENTIL INHALER 6.7 G (200 INHALATIONS) INH PRN (11:58)
[2019-10-06] MEDS ORDERED: Diazepam 10 MG/2 ML SYRINGE IVP SCH (12:00)
[2019-10-06] MEDS ORDERED: HYDROcodone/Acetaminophen 5/325 mg Tablet PO SCH (12:15)
[2019-10-06] MEDS: clonazePAM 1 MG TAB PO SCH ×2 (15:00→21:39)
--- NOTE | 2019-10-06 20:05 | CON ---
DATE OF CONSULTATION: 10/06/2019 REASON FOR CONSULTATION: Preoperative evaluation. HISTORY OF PRESENT ILLNESS: Ms. West is a very pleasant 59-year-old black female, very well known to myself, who comes to the hospital for chest pain and left arm pain. She had a fall last week on Sunday and broke her left arm. She was scheduled to have this fixed; however, she had to stop her Brilinta, which she has been on for an iliac stent. She had this iliac stent about a little less than a year ago. She currently denies any chest pain; however, when she came in, she said she was having a squeezing type pain on her midsternal area. When I ask her about the chest pain, she tells me it was more her left arm pain that went to the chest. She tells me that she has not had any more chest pain like that, it is more her shoulder pain, and she wants her shoulder fixed. Ms. West has had a heart catheterization about a year and a half ago. 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 Her LAD and RCA were widely patent. 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 This should only be there for 3 months minimum, so this can be stopped at any point, and she has been off it for the last few days to try to get this arm fixed. Currently, she is pain free. PAST MEDICAL HISTORY: 1. Hyperlipidemia. 2. Hypertension. 3. Type 2 diabetes. 4. CAD as above. 5. Bipolar disorder, schizophrenia. 6. She has had suicide attempts in the past. PAST SURGICAL HISTORY: 1. Multiple breast surgeries. 2. Sinus surgery. 3. Cholecystectomy. 4. Appendectomy. 5. Hysterectomy. 6. Right iliac stenting. SOCIAL HISTORY: Smokes a pack a day. No alcohol or drug use. ALLERGIES: CHOCOLATE FLAVOR, CORN, GEODON, TORADOL, AND TRAMADOL. OUTPATIENT MEDICATIONS: Include: 1. Tylenol with Codeine. 2. ProAir. 3. Amitriptyline. 4. Aspirin 81 a day. 5. Atorvastatin 20 mg at bedtime. 6. Clonazepam 2 mg t.i.d. 7. Benadryl 25 mg q.6 hours p.r.n. 8. Trulicity. 9. NovoLog 70/30. 10. Imdur 30 mg a day. 11. Protonix 40 mg b.i.d. 12. Brilinta 90 mg b.i.d. 13. Topamax. 14. Trazodone 150 mg at bedtime. REVIEW OF SYSTEMS: A 12-point review of systems was done and was all negative unless stated in the History of Present Illness. PHYSICAL EXAMINATION: VITAL SIGNS: Temperature 97.8, pulse 96, respiratory rate 20, saturating 93% on room air, and blood pressure 164/90. GENERAL: Awake, alert, and oriented x3. No distress. HEENT: Normocephalic, atraumatic. NECK: Supple. LUNGS: Clear. CARDIOVASCULAR: S1 and S2. No S3 or S4. No murmurs. ABDOMEN: Soft. Positive bowel sounds. EXTREMITIES: No edema. Left arm is ecchymotic. Mild deformity on a sling. SKIN: Warm and dry. LABORATORY DATA: Laboratory work was reviewed. CBC with a white count of 14, hemoglobin 12, hematocrit 38, and platelet count 286. D-dimer was a little bit elevated. Chemistry with a sodium of 140, potassium of 3.6, normal BUN and creatinine, GFR was 87. Troponin is completely negative x3 with a normal BNP of 47, LDL of 55, HDL of 41, triglycerides of 66. UA with 250 leukocyte esterase, 4 to 6 red cells, 4 to 6 white cells. Tricyclics, benzodiazepines, cannabis, and opioids were detected in the urine drug screen. ASSESSMENT AND PLAN: 1. Chest pain. Unlikely, this is acute coronary syndrome. She has a complex small vessel disease that is not amenable to any type of revascularization on the left circumflex. This is from heart catheterization a year and a half ago. Currently, I do not see any contraindication to surgery. I will increase her isosorbide mononitrate to 60 mg a day. She may undergo surgical procedure. She would be at intermediate risk for intermediate risk procedure. Currently, her symptoms are most likely related to her left shoulder, and her angina is very well controlled. 2. I do not think we need to do a stress test to risk stratify her as I know what her coronary anatomy looks like. She was unable to lie flat on the stress table due to her left arm and pain from it. I think it should be okay for her to undergo surgery with the understood risk caveats. Thank you for letting us to participate in the care of your patient. We will continue to follow. Job ID: [id number]
[2019-10-06] MEDS: Amitriptyline HCl 100 MG TAB PO SCH (21:38)
[2019-10-06] MEDS: Atorvastatin Calcium 20 MG TAB PO SCH (21:39)
[2019-10-06] MEDS ORDERED: Topiramate 100 MG TAB PO SCH (22:00)
[2019-10-06] MEDS ORDERED: HYDROcodone/Acetaminophen 5/325 mg Tablet PO PRN (23:54)
[2019-10-07] MEDS: Acetaminophen/Codeine 30-300mg Tablet PO PRN ×4 (02:32→23:31)
[2019-10-07] MEDS ORDERED: Morphine 2 MG/ML SYRINGE SLOW IVP SCH (04:15)
[2019-10-07] MEDS: HYDROcodone/Acetaminophen 5/325 mg Tablet PO PRN ×2 (06:43→20:44)
[2019-10-07] MEDS: Nitrofurantoin Macrocrystal 50 MG CAP PO SCH ×4 (08:19→20:41)
[2019-10-07] MEDS: Isosorbide Mononitrate (ER) 30 MG TAB PO SCH (08:19)
[2019-10-07] MEDS: clonazePAM 1 MG TAB PO SCH ×3 (08:19→20:41)
[2019-10-07] MEDS: Aspirin Chewable 81 MG TAB PO SCH (08:57)
[2019-10-07] MEDS: HumuLIN 70/30 (300 UNITS/3 ML VIAL) SC SCH ×2 (08:58→22:44)
[2019-10-07] MEDS: Senokot S 8.6-50 MG TAB PO SCH ×2 (08:58→20:43)
--- NOTE | 2019-10-07 09:24 | PDOC.HOSPP ---
- Subjective Encounter Date: 10/07/19 Encounter Time: 16:15 Subjective: Patient just back from surgery. Has some pain in elbow area but overall improved. No complications during surgery. - Objective Vital Signs & Weight: Vital Signs (12 hours) Temp Pulse Resp BP Pulse Ox 10/07/19 08:00 97.9 F 99 14 159/89 H 95 10/07/19 02:35 97.6 F 94 18 145/82 H 94 L Weight Weight 160 lb I&O: 10/06/19 10/07/19 10/08/19 06:59 06:59 06:59 Intake Total 1250 960 Output Total 750 2000 Balance 500 -1040 Result Diagrams: 10/05/19 05:02 10/05/19 05:02 Additional Labs: Accuchecks 10/07/19 10/06/19 10/06/19 06:49 21:07 16:54 POC Glucose 158 H 211 H 126 H 10/06/19 11:18 POC Glucose 101 Hospitalist ROS - Review of Systems Constitutional: denies: fever, chills Respiratory: denies: cough, shortness of breath Cardiovascular: denies: chest pain, palpitations, orthopnea Gastrointestinal: denies: nausea, vomiting, abdominal pain Musculoskeletal: reports: shoulder pain, arm pain - Medication Medications: Active Medications Generic Name Dose Route Start Last Admin Trade Name Freq PRN Reason Stop Dose Admin Acetaminophen 650 mg 10/04/19 22:12 10/05/19 16:42 Tylenol PO 650 mg Q4H PRN Administration Headache/Fever/Mild Pain (1-3) Acetaminophen/Codeine Phosphate 2 tab 10/05/19 17:08 10/07/19 08:19 Tylenol #3 PO 2 tab Q4H PRN Administration Moderate to Severe Pain (6-10) Hydrocodone Bitart/Acetaminophen 2 tab 10/06/19 23:54 10/07/19 06:43 [place] 5/325 PO 2 tab Q4H PRN Administration Moderate to Severe Pain (6-10) Hydrocodone Bitart/Acetaminophen 1 tab 10/06/19 23:54 10/07/19 00:35 [place] 5/325 PO 1 tab Q4H PRN Administration Moderate Pain (4-6) Amitriptyline HCl 100 mg 10/05/19 21:00 10/06/19 21:38 Elavil PO 100 mg HS NAA Administration Aspirin 81 mg 10/05/19 09:00 10/07/19 08:57 Aspirin Chewable PO Not Given DAILY [facility] Atorvastatin Calcium 20 mg 10/05/19 21:00 10/06/19 21:39 Lipitor PO 20 mg HS [facility] Administration Clonazepam 2 mg 10/06/19 15:00 10/07/19 08:19 Klonopin PO 2 mg TID NAA Administration Insulin Human Isoph/Insulin Regular 50 units 10/05/19 09:00 10/07/19 08:58 Humulin 70/30 SC Not Given BID [facility] Isosorbide Mononitrate 30 mg 10/05/19 09:00 10/07/19 08:19 Imdur Er PO 30 mg DAILY [facility] Administration Nicotine 14 mg 10/04/19 23:00 10/06/19 21:40 Nicoderm Patch TD 14 mg Q24HR [facility] Administration Nitrofurantoin Macrocrystals 100 mg 10/05/19 13:00 10/07/19 08:19 Macrodantin PO 100 mg QID [facility] Administration Pantoprazole Sodium 40 mg 10/05/19 09:00 10/07/19 08:19 Protonix PO 40 mg BID [facility] Administration Senna/Docusate Sodium 2 tab 10/05/19 09:00 10/07/19 08:58 Senokot S PO Not Given BID [facility] Sodium Chloride 10 ml 10/04/19 22:12 10/06/19 15:09 Flush - Normal Saline IVF 10 ml PRN PRN Administration Saline Flush - Exam General Appearance: NAD, awake alert ENT: moist mucosa Heart: RRR, no murmur, no gallops, no rubs Respiratory: CTAB, no wheezes, no rales, no ronchi Gastrointestinal: soft, non-tender, non-distended, normal bowel sounds Extremities - other findings: LUE in cast and sling Psychiatric: normal affect, normal behavior, A&O x 3 Hosp A/P (1) Chest pain, rule out acute myocardial infarction Code(s): R07.9 - CHEST PAIN, UNSPECIFIED Status: Resolved (2) Fracture, humerus closed Code(s): S42.309A - UNSP FRACTURE OF SHAFT OF HUMERUS, UNSP ARM, INIT Status: Acute (3) Bipolar 1 disorder Code(s): F31.9 - BIPOLAR DISORDER, UNSPECIFIED Status: Chronic (4) Depression Code(s): F32.9 - MAJOR DEPRESSIVE DISORDER, SINGLE EPISODE, UNSPECIFIED Status : Chronic (5) HLD (hyperlipidemia) Code(s): E78.5 - HYPERLIPIDEMIA, UNSPECIFIED Status: Chronic (6) HTN (hypertension) Code(s): I10 - ESSENTIAL (PRIMARY) HYPERTENSION Status: Chronic (7) IDDM (insulin dependent diabetes mellitus) Code(s): [id number] - Status: Chronic (8) Obesity Code(s): E66.9 - OBESITY, UNSPECIFIED Status: Chronic - Plan S/p fixation of elbow and shoulder fractures with screws and plates. Can go home when ok with ortho, likely tomorrow.
[2019-10-07] MEDS ORDERED: Fentanyl 100 MCG/2 ML VIAL ONE ×4 (11:27→16:10)
[2019-10-07] MEDS ORDERED: Bupivacaine PF 0.5% 30 ML VIAL ONE (13:28)
[2019-10-07] MEDS ORDERED: Lidocaine 1% PF 5 ML VIAL ONE (13:34)
[2019-10-07] MEDS ORDERED: Rocuronium Bromide 10 MG/ML (10ML VIAL) ONE (13:34)
[2019-10-07] MEDS ORDERED: Metoclopramide HCl 10 MG/2 ML VIAL ONE (13:34)
[2019-10-07] MEDS ORDERED: Ondansetron PF 4 MG/2 ML Vial ONE (13:34)
[2019-10-07] MEDS ORDERED: Glycopyrrolate 0.2 MG/ML 5 ML SYRINGE ONE (13:34)
[2019-10-07] MEDS ORDERED: PROPOFOL 200 MG/20 ML VIAL ONE (13:34)
[2019-10-07] MEDS ORDERED: Promethazine HCl 25 MG/ML VIAL SLOW IVP PRN (13:55)
[2019-10-07] MEDS ORDERED: Promethazine HCl 25 MG/ML VIAL IM PRN (13:55)
[2019-10-07] MEDS ORDERED: Meperidine HCl/PF 25 MG/ML VIAL SLOW IVP PRN (13:55)
[2019-10-07] MEDS ORDERED: PACU-Morphine 4MG/ML VIAL SLOW IVP PRN (13:55)
--- NOTE | 2019-10-07 16:25 | RAD ---
INTRAOPERATIVE FLUOROSCOPY FOR ORIF OF THE LEFT OLECRANON FRACTURE: 10/07/19 EXPOSURE: 4.8 seconds. 0.12 mGy. FINDINGS: Three intraoperative fluoroscopic images demonstrate internal fixation of an olecranon fracture near anatomic alignment. IMPRESSION: Intraoperative fluoroscopy as above. POS: ROSA ISELA
--- NOTE | 2019-10-07 16:27 | RAD ---
EXAM: INTRAOPERATIVE FLUOROSCOPY FOR ORIF: 10/07/19 COMPARISON: None. EXPOSURE: 22.1 seconds. 4.76 mGy. FINDINGS: Two intraoperative fluoroscopic views demonstrate internal fixation plate traversing the proximal lef t humerus. Near anatomic alignment. IMPRESSION: Intraoperative fluoroscopy as above. POS: ROSA ISELA
--- NOTE | 2019-10-07 19:48 | PDOC.CPN ---
- Subjective Date: 10/07/19 Time: 19:41 Interval history: She had her shoulder surgery without issues. - Review of Systems General: denies: fever/chills, weight/appetite/sleep changes, night sweats, fatigue Respiratory: denies: cough, congestion, shortness of breath, exercise intolerance Cardiovascular: denies: chest pain, palpitation, edema, paroxysmal nocturnal dyspnea, orthopnea Gastrointestinal: denies: nausea, vomiting, diarrhea, constipation, abd pain, GI bleeding Musculoskeletal: reports: pain. denies: tenderness, stiffness, swelling, arthritis/arthralgias Neurological: denies: numbness, syncope, seizure, weakness - Objective Allergies/Adverse Reactions: Allergies Allergy/AdvReac Type Severity Reaction Status Date / Time chocolate flavor Allergy Verified 01/22/18 16:32 corn Allergy Rash Verified 01/22/18 16:32 ketorolac [From Toradol] Allergy Verified 01/22/18 16:32 tramadol Allergy Verified 10/05/19 00:50 ziprasidone [From Geodon] Allergy nose bleeds Verified 01/22/18 16:32 hickory Allergy throat Uncoded 01/22/18 16:32 swelling Visit Medications: Current Medications Acetaminophen (Tylenol) 650 mg PO Q4H PRN PRN Reason: Headache/Fever/Mild Pain (1-3) Last Admin: 10/05/19 16:42 Dose: 650 mg Acetaminophen/Codeine Phosphate (Tylenol #3) 2 tab PO Q4H PRN PRN Reason: Moderate to Severe Pain (6-10) Last Admin: 10/07/19 17:39 Dose: 2 tab Hydrocodone Bitart/Acetaminophen ([place] 5/325) 2 tab PO Q4H PRN PRN Reason: Moderate to Severe Pain (6-10) Last Admin: 10/07/19 06:43 Dose: 2 tab Hydrocodone Bitart/Acetaminophen ([place] 5/325) 1 tab PO Q4H PRN PRN Reason: Moderate Pain (4-6) Last Admin: 10/07/19 00:35 Dose: 1 tab Albuterol Sulfate (Proventil Hfa) 2 puff INH Q6H PRN PRN Reason: SOB &/or Wheezing Amitriptyline HCl (Elavil) 100 mg PO HS NAA Last Admin: 10/06/19 21:38 Dose: 100 mg Aspirin (Aspirin Chewable) 81 mg PO DAILY [facility] Last Admin: 10/07/19 08:57 Dose: Not Given Atorvastatin Calcium (Lipitor) 20 mg PO [facility] Last Admin: 10/06/19 21:39 Dose: 20 mg Clonazepam (Klonopin) 2 mg PO TID [facility] Last Admin: 10/07/19 17:41 Dose: 2 mg Dextrose/Water (Dextrose 50%) 25 gm SLOW IVP PRN PRN PRN Reason: Hypoglycemia Glucagon (Glucagon) 1 mg IM PRN PRN PRN Reason: Hypoglycemia Dextrose/Water (D5w) 1,000 mls @ 0 mls/hr IV .Q0M PRN PRN Reason: Hypoglycemia Cefazolin Sodium/Dextrose 2 gm (/ Device) 50 mls @ 100 mls/hr IVPB 0400,1200, 2000 [facility] Stop: 10/08/19 12:29 Insulin Human Isoph/Insulin Regular (Humulin 70/30) 50 units SC BID [facility] Last Admin: 10/07/19 08:58 Dose: Not Given Insulin Human Lispro (Humalog) 0 units SC .MILD SLIDING SCALE PRN PRN Reason: Mild Correctional Scale Insulin Human Lispro (Humalog) 0 units SC .BEDTIME SLIDING SC PRN PRN Reason: Bedtime Correctional Scale Isosorbide Mononitrate (Imdur Er) 30 mg PO DAILY [facility] Last Admin: 10/07/19 08:19 Dose: 30 mg Nicotine (Nicoderm Patch) 14 mg TD Q24HR [facility] Last Admin: 10/06/19 21:40 Dose: 14 mg Nitrofurantoin Macrocrystals (Macrodantin) 100 mg PO QID [facility] Last Admin: 10/07/19 17:41 Dose: 100 mg Pantoprazole Sodium (Protonix) 40 mg PO BID [facility] Last Admin: 10/07/19 08:19 Dose: 40 mg Senna/Docusate Sodium (Senokot S) 2 tab PO BID [facility] Last Admin: 10/07/19 08:58 Dose: Not Given Sodium Chloride (Flush - Normal Saline) 10 ml IVF PRN PRN PRN Reason: Saline Flush Last Admin: 10/06/19 15:09 Dose: 10 ml Topiramate (Topamax) 200 mg PO [facility] Vital Signs & Weight: Vital Signs Temp Pulse Resp BP BP Pulse Ox 10/07/19 16:35 98.5 F 97 18 165/87 H 91 L 10/07/19 11:35 97.6 F 60 21 H 133/60 96 10/07/19 08:00 97.9 F 99 14 159/89 H 95 Weight 160 lb - Physical Exam General: appears well HEENT: mucus membranes moist Neck: supple neck Cardiac: regular rate and rhythm Lungs: clear to auscultation Neuro: grossly intact Abdomen: active bowel sounds Extremities: no edema Skin: clear Musculoskeletal: pain in joint - Labs Result Diagrams: 10/05/19 05:02 10/05/19 05:02 Troponin/CKMB Troponin I Less than 0.010 ng/mL (< 0.028) 10/05/19 00:11 - Telemetry Sinus rhythms and dysrhythmias: sinus rhythm - Assessment/Plan Assessment/Plan: 1. S/P left arm surgery 2. CAD 3. 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 HTN 5. Type 2 DM 6. Bipolar disorder PLAN: - Continue current regimen. - Asymptomatic from cardiac perspective.
[2019-10-07] MEDS ORDERED: CEFAZOLIN 2 GM in Premix Bag 1 BAG IVPB SCH (20:00)
--- NOTE | 2019-10-07 20:20 | OP ---
DATE OF PROCEDURE: 10/07/2019 PROCEDURES PERFORMED: 1. Open reduction and internal fixation of left olecranon fracture. 2. Open reduction and internal fixation of left proximal humerus fracture. PREOPERATIVE DIAGNOSIS: Displaced left olecranon fracture and proximal humerus fracture. POSTOPERATIVE DIAGNOSIS: Displaced left olecranon fracture and proximal humerus fracture. COMPLICATIONS: None. ESTIMATED BLOOD LOSS: 150 mL. MUSHROOM SORTER GRADER: Deshawn Hale PA-C IMPLANTS: Synthes olecranon plate with variable angle locking screws, Synthes proximal humeral locking plate. INDICATIONS: Ms. West is a 59-year-old female, who has fallen and fractured her left olecranon and left proximal humerus. She has been indicated for open reduction and internal fixation to restore anatomic alignment and promote healing. Risks have been reviewed in detail. She has elected to proceed with the operation. We began the procedure with deltopectoral approach to the shoulder. We dissected down through the subcutaneous tissues to the deltopectoral interval, which was exposed and opened. We worked more deeply down to the humerus. We cleared the hematoma. We cleared the bony edges. We encountered a displaced tuberosity fracture, as well as humeral neck fracture. At this point, we proceeded to reduce our fracture using K-wires and manipulation of the fragments. We placed multiple Ethibond sutures in the tuberosity fragment. We then applied a Synthes plate at the proximal humerus. We placed multiple screws proximally and distally locking the plate to the bone and holding our reduction. We tied our Ethibond sutures through the plate as well. This secured our tuberosity fixation. We oversewed this, securing our repair once more. We took final images after all screws were placed. We then thoroughly irrigated with copious lavage. We closed the deep tissues with 0 Vicryl suture followed by 2-0 Vicryl suture, and monika for the skin. A sterile dressing was applied on the upper arm. At this point, we moved to the elbow. We performed a posterior approach to the olecranon. We dissected down through the subcutaneous tissues to the fascia, which was opened over the olecranon fracture. We encountered the comminuted fracture. There was displacement. We irrigated the hematoma. We then reduced the fracture back into its anatomic position using . Next, we took x-ray images confirming this. Finally, we placed a posterior olecranon plate. Multiple screws were placed proximally and distally. We took care to keep these out of the joint. These were confirmed with x-ray. We felt an appropriate amount of screw holes. We then took final images. Next, we irrigated and closed the fascia followed by layered closure. A sterile dressing and a splint was placed on the elbow. The patient was taken to the recovery room in good condition without complication at this point. Job ID: [id number]
[2019-10-07] MEDS: Atorvastatin Calcium 20 MG TAB PO SCH (20:41)
[2019-10-07] MEDS: Amitriptyline HCl 100 MG TAB PO SCH (20:42)
[2019-10-07] MEDS: Nicotine 14 MG PATCH TD SCH (20:46)
[2019-10-07] MEDS ORDERED: Topiramate 100 MG TAB PO SCH (21:00)
[2019-10-07] MEDS: CEFAZOLIN 2 GM in Premix Bag 1 BAG IVPB SCH (23:48)
[2019-10-08] MEDS: HYDROcodone/Acetaminophen 5/325 mg Tablet PO PRN ×2 (03:14→10:55)
[2019-10-08] MEDS: Acetaminophen/Codeine 30-300mg Tablet PO PRN (06:52)
[2019-10-08] MEDS: Isosorbide Mononitrate (ER) 30 MG TAB PO SCH (08:52)
[2019-10-08] MEDS: Aspirin Chewable 81 MG TAB PO SCH (08:52)
[2019-10-08] MEDS: Senokot S 8.6-50 MG TAB PO SCH (08:53)
[2019-10-08] MEDS: Nitrofurantoin Macrocrystal 50 MG CAP PO SCH ×2 (08:53→13:30)
--- NOTE | 2019-10-08 09:02 | PDOC.HOSPP ---
- Subjective Encounter Date: 10/08/19 Encounter Time: 11:00 Subjective: Patient with pain in arm. No changes. No events overnight. Patient ambulating well. Going outside to smoke without problem. - Objective Vital Signs & Weight: Vital Signs (12 hours) Temp Pulse Resp BP Pulse Ox 10/08/19 03:17 98 F 108 H 20 150/78 H 93 L Weight Weight 160 lb I&O: 10/07/19 10/08/19 10/09/19 06:59 06:59 06:59 Intake Total 960 1010 Output Total 2000 1000 Balance -1040 10 Result Diagrams: 10/08/19 09:36 10/05/19 05:02 Additional Labs: Accuchecks 10/08/19 10/07/19 10/07/19 06:33 20:48 16:48 POC Glucose 192 H 274 H 218 H Hospitalist ROS - Review of Systems Constitutional: denies: fever, chills Respiratory: denies: cough, shortness of breath Cardiovascular: denies: chest pain Gastrointestinal: denies: nausea, vomiting, abdominal pain Musculoskeletal: reports: shoulder pain, arm pain - Medication Medications: Active Medications Generic Name Dose Route Start Last Admin Trade Name Freq PRN Reason Stop Dose Admin Acetaminophen 650 mg 10/04/19 22:12 10/05/19 16:42 Tylenol PO 650 mg Q4H PRN Administration Headache/Fever/Mild Pain (1-3) Acetaminophen/Codeine Phosphate 2 tab 10/05/19 17:08 10/08/19 06:52 Tylenol #3 PO 2 tab Q4H PRN Administration Moderate to Severe Pain (6-10) Hydrocodone Bitart/Acetaminophen 2 tab 10/06/19 23:54 10/08/19 03:14 [place] 5/325 PO 2 tab Q4H PRN Administration Moderate to Severe Pain (6-10) Hydrocodone Bitart/Acetaminophen 1 tab 10/06/19 23:54 10/07/19 00:35 [place] 5/325 PO 1 tab Q4H PRN Administration Moderate Pain (4-6) Amitriptyline HCl 100 mg 10/05/19 21:00 10/07/19 20:42 Elavil PO 100 mg HS NAA Administration Aspirin 81 mg 10/05/19 09:00 10/08/19 08:52 Aspirin Chewable PO 81 mg DAILY NAA Administration Atorvastatin Calcium 20 mg 10/05/19 21:00 10/07/19 20:41 Lipitor PO 20 mg HS NAA Administration Clonazepam 2 mg 10/06/19 15:00 10/07/19 20:41 Klonopin PO 2 mg TID NAA Administration Cefazolin Sodium/Dextrose 2 gm 50 mls @ 100 mls/hr 10/07/19 23:59 10/07/19 23 :48 / Device IVPB 10/08/19 16:29 Not Given 0800,1600,2359 [facility] Insulin Human Isoph/Insulin Regular 50 units 10/05/19 09:00 10/07/19 22:44 Humulin 70/30 SC 50 unit BID NAA Administration Insulin Human Lispro 0 units 10/04/19 22:17 10/08/19 06:36 Humalog SC 2 unit .MILD SLIDING SCALE PRN Administration Mild Correctional Scale Isosorbide Mononitrate 30 mg 10/05/19 09:00 10/08/19 08:52 Imdur Er PO 30 mg DAILY [facility] Administration Nicotine 14 mg 10/04/19 23:00 10/07/19 20:46 Nicoderm Patch TD 14 mg Q24HR NAA Administration Nitrofurantoin Macrocrystals 100 mg 10/05/19 13:00 10/08/19 08:53 Macrodantin PO 100 mg QID [facility] Administration Pantoprazole Sodium 40 mg 10/05/19 09:00 10/08/19 08:53 Protonix PO 40 mg BID NAA Administration Senna/Docusate Sodium 2 tab 10/05/19 09:00 10/08/19 08:53 Senokot S PO 2 tab BID [facility] Administration Sodium Chloride 10 ml 10/04/19 22:12 10/06/19 15:09 Flush - Normal Saline IVF 10 ml PRN PRN Administration Saline Flush Topiramate 200 mg 10/07/19 21:00 10/07/19 20:42 Topamax PO 200 mg HS [facility] Administration - Exam General Appearance: NAD, awake alert ENT: moist mucosa Heart: RRR, no murmur, no gallops, no rubs Respiratory: CTAB, no wheezes, no rales, no ronchi Gastrointestinal: soft, non-tender, non-distended, normal bowel sounds Extremities - other findings: LUE in cast and sling, good distal cap refill and sensation Psychiatric: normal affect, normal behavior, A&O x 3 Hosp A/P (1) Chest pain, rule out acute myocardial infarction Code(s): R07.9 - CHEST PAIN, UNSPECIFIED Status: Resolved (2) Fracture, humerus closed Code(s): S42.309A - UNSP FRACTURE OF SHAFT OF HUMERUS, UNSP ARM, INIT Status: Acute (3) Bipolar 1 disorder Code(s): F31.9 - BIPOLAR DISORDER, UNSPECIFIED Status: Chronic (4) Depression Code(s): F32.9 - MAJOR DEPRESSIVE DISORDER, SINGLE EPISODE, UNSPECIFIED Status : Chronic (5) HLD (hyperlipidemia) Code(s): E78.5 - HYPERLIPIDEMIA, UNSPECIFIED Status: Chronic (6) HTN (hypertension) Code(s): I10 - ESSENTIAL (PRIMARY) HYPERTENSION Status: Chronic (7) IDDM (insulin dependent diabetes mellitus) Code(s): ITK0688 - Status: Chronic (8) Obesity Code(s): E66.9 - OBESITY, UNSPECIFIED Status: Chronic - Plan S/p fixation of elbow and shoulder fractures with screws and plates. Cleared for d/c home by Dr. Martinez. F/u in his clinic in 2 weeks.
[2019-10-08] MEDS: CEFAZOLIN 2 GM in Premix Bag 1 BAG IVPB SCH (09:49)
[2019-10-08] MEDS: clonazePAM 1 MG TAB PO SCH (09:49)
[2019-10-08 10:02] LABS: #Basophils 0.1 thou/uL (0.0-0.2); #Eosinphils 0.2 thou/uL (0.0-0.7); #Lymphocytes 2.8 thou/uL (1.20-3.40); #Monocytes 1.1 thou/uL (0.11-0.59); #Neutrophils 8.6 thou/uL (1.40-6.50); %Basophils 0.8 % (0.0-1.0); %Eosinophils 1.6 % (0.0-10.0); %Lymphocytes 22.1 % (21.0-51.0); %Monocytes 8.5 % (0.0-10.0); Hemoglobin 11.7 g/dL (12.0-16.0); Mean Corpuscular HGB CONC 32.1 g/dL (32.0-36.0); Mean Corpuscular Hemoglobin 32.3 pg (27.0-31.0); Mean Platelet Volume 6.4 fL (7.4-10.4); Platelet Count 385 thou/uL (130-400); Red Blood Cell (RBC) Count 3.61 mill/uL (4.20-5.40); White Blood Cell (WBC) Count 12.8 thou/uL (4.8-10.8)
[2019-10-08] MEDS: HumuLIN 70/30 (300 UNITS/3 ML VIAL) SC SCH (10:55)
[2019-10-08 11:41] VITALS: BP 156/80; TEMP 98.8
--- NOTE | 2019-10-09 05:21 | DIS ---
DATE OF ADMISSION: 10/04/2019 DATE OF DISCHARGE: 10/08/2019 PRIMARY CARE PHYSICIAN: Jania Fraser PA-C REASON FOR ADMISSION: Chest pain. DIAGNOSES AT DISCHARGE: 1. Chest pain resolved, acute myocardial infarction ruled out. 2. Proximal left humeral fracture. 3. Left olecranon fracture. 4. Bipolar disorder, type 1. 5. Depression. 6. Hyperlipidemia. 7. Hypertension. 8. Insulin-dependent diabetes mellitus. 9. Obesity. PROCEDURES: 1. CT angio of the chest with and without contrast showing no evidence for pulmonary embolism. Some nonspecific areas of subsegmental volume loss involving the lung bases. 2. Intraoperative fluoroscopy of the left olecranon fracture showing near anatomic alignment with surgery. 3. Intraoperative fluoroscopy for the ORIF of the left proximal humeral fracture showing near anatomic alignment. 4. Open reduction and internal fixation of both the left olecranon fracture and the left proximal humerus fracture. CONSULTATIONS: 1. Orthopedics, Dr. Martinez. 2. Cardiology, Dr. Morgan. SUMMARY OF HOSPITAL COURSE: This is a 59-year-old white female, who was seen in the emergency room the previous week after a fall, had a proximal humeral fracture and olecranon fracture on the left side. She was initially splinted and is supposed to follow up with Dr. Martinez this week for outpatient fixation. The patient started to have chest pain as a history of coronary artery disease with a lesion that is not sustainable and Dr. Morgan has her on Brilinta, but that had to be stopped after her fracture prior to her surgery. The patient was admitted to the hospital. She had elevated D-dimer, so CTA was done, which was negative. She had resolution of her chest pain during hospitalization. We did try to do a stress test; however, the patient could not tolerate the stress test due to anxiety and her pain and did consult Dr. Morgan. He cleared her for surgery and Dr. Martinez took her back and did the procedures as above. On the day of discharge, the patient was cleared for discharge by Dr. Martinez and told to follow up in a couple weeks. DISCHARGE MANAGEMENT: Discharged to home. FOLLOWUP: Follow up with Dr. Martinez in 14 days and with primary care physician in 7 days. ACTIVITY: As tolerated. DIET: Diabetic diet. MEDICATIONS: 1. Tylenol #3 one to two tablets every 6 hours as needed for pain, 60 tablets dispensed. 2. Albuterol as needed. 3. Amitriptyline 100 mg at night. 4. Aspirin 81 mg daily. 5. Atorvastatin 20 mg at night. 6. Clonazepam 2 mg 3 times a day. 7. NovoLog mix 70/30, 50 units twice a day. 8. Isosorbide mononitrate 30 mg daily. 9. Protonix 40 mg twice a day. 10. Topamax 200 mg daily. 11. Benadryl as needed. 12. Trulicity 1.5 mg subcu every week. 13. Phenergan as needed. 14. Brilinta 90 mg twice a day. 15. Trazodone 150 mg at night. Job ID: [id number]
== END 2019-10-08 13:30 | disposition home or self-care (01) ==
LOC: ERS 16:08 → 2SW 20:03
PROVIDERS: ADMIT Emergency Medicine; ATTEND Emergency Medicine
PROC: 0PSL04Z Reposition Left Ulna with Internal Fixation Device, Open Approach (ICD-10-PCS; principal; 2019-10-07)
PROC: 0PSD04Z Reposition Left Humeral Head with Internal Fixation Device, Open Approach (ICD-10-PCS; 2019-10-07)
DX: R07.9 Chest pain, unspecified (principal); S52.022A Displaced fracture of olecranon process without intraarticular extension of left ulna, initial encounter for closed fracture; S42.202A Unspecified fracture of upper end of left humerus, initial encounter for closed fracture; I10 Essential (primary) hypertension; E11.9 Type 2 diabetes mellitus without complications; I25.119 Atherosclerotic heart disease of native coronary artery with unspecified angina pectoris; J44.9 Chronic obstructive pulmonary disease, unspecified; F41.9 Anxiety disorder, unspecified; E78.00 Pure hypercholesterolemia, unspecified; F17.210 Nicotine dependence, cigarettes, uncomplicated; K21.9 Gastro-esophageal reflux disease without esophagitis; B18.2 Chronic viral hepatitis C; F31.9 Bipolar disorder, unspecified; E66.9 Obesity, unspecified; Z68.30 Body mass index [BMI] 30.0-30.9, adult; Z79.4 Long term (current) use of insulin; Z79.82 Long term (current) use of aspirin; Z79.899 Other long term (current) drug therapy; Z88.5 Allergy status to narcotic agent; Z88.8 Allergy status to other drugs, medicaments and biological substances; Z91.018 Allergy to other foods
CPT/HCPCS: 36415; 36416; 71045; 71275; 76000; 78451; 80053; 80061; 80306; 81001; 82550; 83690; 83880; 84443; 84484; 85025; 85379; 93005; 96361; 96365; 96366; 96374; 96375; 96376; A9500; C1713; G0378; J0690; J1815; J2001; J2060; J2270; J2405; J2704; J2765; J3010; J3360; Q9967; S0020

== ENCOUNTER 2019-10-08 20:46 | Emergency (ER) | payer OTHER ==
[2019-10-08] MEDS ORDERED: Morphine 4 MG/ML VIAL ONE (21:25)
== END 2019-10-08 22:19 | disposition home or self-care (01) ==
LOC: ERS 20:46
DX: G89.18 Other acute postprocedural pain (principal); M25.512 Pain in left shoulder; M79.89 Other specified soft tissue disorders; E11.9 Type 2 diabetes mellitus without complications; E78.5 Hyperlipidemia, unspecified; E78.00 Pure hypercholesterolemia, unspecified; I10 Essential (primary) hypertension; F31.9 Bipolar disorder, unspecified; F20.9 Schizophrenia, unspecified; F17.210 Nicotine dependence, cigarettes, uncomplicated; Z79.899 Other long term (current) drug therapy; Z79.82 Long term (current) use of aspirin
CPT/HCPCS: 96372; 99283; J2270

== ENCOUNTER 2019-10-14 13:26 | Emergency (ER) | payer OTHER ==
--- NOTE | 2019-10-14 14:08 | RAD ---
XR Shoulder Lt 3 View STANDARD HISTORY: Left femur fracture FINDINGS: There is been interval reduction and internal fixation of the proximal left humeral fracture with ligia te and screws since 10/02/2019.
--- NOTE | 2019-10-14 14:09 | RAD ---
XR Elbow Lt 4 View STANDARD HISTORY: Left ulnar fracture FINDINGS: There has been interval reduction and internal fixation of the distracted fracture of the ulnar olecr anon with plate and screws since 10/02/2019.
[2019-10-14] MEDS ORDERED: Morphine 4 MG/ML VIAL ONE (14:10)
== END 2019-10-14 14:46 | disposition home or self-care (01) ==
LOC: ERS 13:26
DX: S49.92XA Unspecified injury of left shoulder and upper arm, initial encounter (principal); E11.9 Type 2 diabetes mellitus without complications; E78.5 Hyperlipidemia, unspecified; I10 Essential (primary) hypertension; F31.9 Bipolar disorder, unspecified; F20.9 Schizophrenia, unspecified; F17.210 Nicotine dependence, cigarettes, uncomplicated; Z79.82 Long term (current) use of aspirin; Z79.51 Long term (current) use of inhaled steroids; Z79.899 Other long term (current) drug therapy; W01.0XXA Fall on same level from slipping, tripping and stumbling without subsequent striking against object, initial encounter
CPT/HCPCS: 96372; J2270

== ENCOUNTER 2020-03-11 19:07 | Inpatient (IN) | payer OTHER ==
[2020-03-11 19:28] LABS: #Basophils 0.1 thou/uL (0.0-0.2); #Eosinphils 0.5 thou/uL (0.0-0.7); #Lymphocytes 3.1 thou/uL (1.20-3.40); #Monocytes 0.9 thou/uL (0.11-0.59); #Neutrophils 6.6 thou/uL (1.40-6.50); %Eosinophils 4.1 % (0.0-10.0); %Lymphocytes 27.7 % (21.0-51.0); %Monocytes 8.1 % (0.0-10.0); %Neutrophils 59.2 % (42.0-75.0); Hemoglobin 15.6 g/dL (12.0-16.0); Mean Corpuscular HGB CONC 33.3 g/dL (32.0-36.0); Mean Corpuscular Hemoglobin 32.1 pg (27.0-31.0); Mean Corpuscular Volume 96.3 fL (78.0-98.0); Mean Platelet Volume 7.9 fL (7.4-10.4); Platelet Count 368 thou/uL (130-400); RBC Distribution Width 14.1 % (11.5-14.5); Red Blood Cell (RBC) Count 4.87 mill/uL (4.20-5.40); White Blood Cell (WBC) Count 11.2 thou/uL (4.8-10.8)
--- NOTE | 2020-03-11 19:36 | CT ---
CT BRAIN NONCONTRAST: 03/11/20 HISTORY: 59-year-old female with altered mental status. Dr. Lopez verbally gave the report for this level II stroke protocol by telephone to Dr. Peterson on at 7:28 p.m. FINDINGS: There is no midline shift or any other mass effect. There is no evidence of acute intracranial hemor rhage, large cortical infarct, obstructive hydrocephalus, or extraaxial fluid collection. The calvar ium is intact. IMPRESSION: No acute intracranial findings. Code CR jn [] POS: JIN
[2020-03-11 19:49] LABS: ALT (SGPT) 25 U/L (8-55); AST (SGOT) 30 U/L (5-34); Albumin 3.8 g/dL (3.5-5.0); Alkaline Phosphatase 97 U/L (40-110); Anion Gap 15 mmol/L (10-20); BUN (Urea Nitrogen) 9 mg/dL (9.8-20.1); Bilirubin, Total 0.7 mg/dL (0.2-1.2); Calc. Creatinine Clearance 0 mL/min (70-130); Calcium 9.3 mg/dL (7.8-10.44); Carbon Dioxide 29 mmol/L (22-29); Chloride 87 mmol/L (98-107); Estimated GFR-MDRD 79; Globulin 3.6 g/dL (2.4-3.5); Glucose 124 mg/dL (70-105); Protein, Total 7.4 g/dL (6.0-8.3); Sodium 128 mmol/L (136-145)
[2020-03-11 20:10] LABS: Bilirubin Negative (Negative); Blood, Urine Negative (Negative); Clarity Clear (Clear); Glucose, Urine (Dipstick) Normal (Negative); Ketone, Urine 20 mg/dL (Negative); Leukocyte Negative Leu/uL (Negative); Nitrite Negative (Negative); Protein, Urine (Dipstick) 10 mg/dL (Neg-Trace); Specific Gravity, Urine 1.016 (1.002-1.036); pH, Urine 5.5 (5.0-9.0)
[2020-03-11 20:19] LABS: Amphetamine Not Detected (NotDetected); Barbiturates Screen Not Detected (NotDetected); Benzodiazepine Screen Detected (NotDetected); Cocaine Metabolite Screen Not Detected (NotDetected); Medtox Control Line Valid? VALID (VALID); Medtox Reader # READER 1; Methadone Not Detected (NotDetected); Methamphetamine Not Detected (NotDetected); Opiate Screen Not Detected (NotDetected); Oxycodone Screen Not Detected (NotDetected); Phencyclidine (PCP) Not Detected (NotDetected); THC/Cannabinoid Screen Detected (NotDetected); Tricyclic Screen Detected (NotDetected)
--- NOTE | 2020-03-11 21:07 | RAD ---
Chest AP view INDICATION: Weakness and altered mental status COMPARISON: February 25, 2020 FINDINGS: Lungs: Chronic lung changes are stable Cardiac silhouette: Mild cardiomegaly is stable Pulmonary vasculature: Normal Pleural spaces: No pleural effusion or pneumothorax is demonstrated. Upper abdomen: No abnormality seen. Osseous structures: No acute osseous abnormality. Additional findings: Instrumentation involving the incompletely healed left proximal humerus fractur e does not appear appreciably changed. IMPRESSION: No acute cardiopulmonary abnormality.
[2020-03-12] MEDS ORDERED: Dextrose 5% in Water 1,000 ML IV PRN (01:03)
[2020-03-12] MEDS ORDERED: Dextrose 50% Abboject 50 ML SYRINGE SLOW IVP PRN (01:03)
[2020-03-12] MEDS ORDERED: Sodium Chloride 0.9% 1,000 ML IV SCH (01:15)
[2020-03-12] MEDS ORDERED: Potassium Chloride 20 MEQ TAB PO SCH (01:15)
--- NOTE | 2020-03-12 02:01 | HP ---
REASON FOR ADMISSION: Change in mental status. HISTORY OF PRESENT ILLNESS: This is a 59-year-old female patient, who was transported by EMS to our emergency room for weakness and change in mental status. In the emergency room, she minimally followed all commands, but her eyes were open. She did not look in distress. I did speak with her over the phone and he tells me that the patient was recently in our hospital, discharged approximately 10 days ago. She was hospitalized for 2 weeks. During that hospitalization, she was intubated. She was in rapid atrial fibrillation. She was cardioverted and started on Eliquis and on amiodarone. After her discharge, she remained weak and had poor oral intake two days ago and her took her to her primary care physician office for followup visit. At that time, she was not answering questions quickly and promptly. Today, he described her as sitting in the chair and looking as if she does not know him. She usually sleeps 3 hours even though she is taking Klonopin. Yesterday, she slept all night, which is more hours than her usual. She continued to look at him asking what she is supposed to be doing. He was concerned and that is why he called EMS. I did review her previous admission that is found under a different medical record number and it seems that she presented with rapid atrial fibrillation and at some point developed acute hypoxic respiratory failure secondary to severe sepsis from pneumonia versus pulmonary edema. She required to be intubated and at some point, she underwent cardioversion for atrial flutter. She was followed by Cardiology and she was started on amiodarone and Eliquis. When she presented to the emergency room initially, she was also confused and she was deemed to have acute metabolic encephalopathy. The etiology was noted to be unclear. PAST MEDICAL HISTORY: 1. High cholesterol. 2. High blood pressure. 3. Diabetes type 2. 4. Coronary artery disease. 5. Multiple breast surgeries. 6. Sinus surgery. 7. Cholecystectomy. 8. Appendectomy. 9. Hysterectomy. 10. Stent plane placement in the lower extremity, open reduction and internal fixation of the left olecranon fracture and left proximal humeral fracture. 11. Bipolar disorder and schizophrenia. 12. History of suicide attempts. SOCIAL HISTORY: She smokes one pack a day. Denies drinking alcohol. Denies using drugs. ALLERGIES: ALLERGY TO GEODON, TORADOL, TRAMADOL. FAMILY HISTORY: Positive for heart disease as per records. REVIEW OF SYSTEMS: Unable to obtain due to her confusion. PHYSICAL EXAMINATION: GENERAL: She is awake, but does not answer questions. Does not appear in distress. VITAL SIGNS: Her blood pressure is 135/78, heart rate of 94, saturating 97% on room air. HEENT: Head is nontraumatic, normocephalic. Pupils equal, reactive. Extraocular movements are intact. Nonicteric sclerae. Well injected conjunctivae. Oral mucosa normal. Nasal mucosa normal. NECK: Supple. No adenopathy. No murmur. Thyroid is not palpable. Trachea is midline. No supraclavicular lymphadenopathy. HEART: S1 and S2 regular. No murmurs. No gallops. No friction rubs. No displacement of PMI. LUNGS: Clear to auscultation bilaterally. No wheezes, rhonchi, no crackles. Poor inspiratory effort. Bowel sounds are positive. Nontender abdomen. No hepatosplenomegaly. No lower extremity edema. No cyanosis noted. NEUROLOGIC: Cranial nerves 2 through 12 within normal limits. Unable to do a full neurologic examination. LABORATORY DATA: Her blood work shows WBC of 11.2, hemoglobin of 15.6, platelet of 368. Sodium of 128, potassium 3, bicarb of 29. Urine negative for infection. Urine tox screen shows tricyclic benzodiazepine and cannabinoids detected. Chest x-ray shows no acute cardiopulmonary abnormality. CT of the brain shows no acute finding. EKG per my read shows atrial fibrillation. ASSESSMENT AND PLAN: This is a 59-year-old female patient, who is presenting with change in mental status. The patient was in our hospital recently, presented similarly but then developed rapid atrial fibrillation and at some point, sepsis secondary to pneumonia needed to be intubated and then cardioverted, then extubated and discharged home but never recovered completely it seems. Today, she seems to have low sodium level that can explain her confusion. Also, she is on multiple psychiatric medications. Neurology: I will hold all her psychiatric medication including trazodone, Klonopin, and amitriptyline and will put her on aspiration precautions. Pulmonary: The patient has history of chronic obstructive pulmonary disease. We will maintain her on neb treatments and will do an ABG to assess her pCO2. Endocrinology: She has history of diabetes. We will have her on insulin sliding scale. Cardiac: The patient will be monitored on telemetry. We will continue her amiodarone and Eliquis for her atrial fibrillation. We will check a digoxin level in the morning. The patient and it is still pending. Renal system, electrolytes: The patient is hyponatremic. She does take Lasix as needed at home. This could be due to low oral intake combined with the fact that she is on Lasix. We will have her on IV fluids here. She did receive normal saline bolus in the ER. We will supplement with some potassium and recheck her electrolytes later on. I did discuss the code status with her and he wishes her to be a full code. Job ID: [id number]
[2020-03-12 05:01] LABS: #Basophils 0.1 thou/uL (0.0-0.2); #Eosinphils 0.5 thou/uL (0.0-0.7); #Lymphocytes 2.6 thou/uL (1.20-3.40); #Monocytes 0.6 thou/uL (0.11-0.59); #Neutrophils 4.7 thou/uL (1.40-6.50); %Basophils 0.7 % (0.0-1.0); %Eosinophils 5.9 % (0.0-10.0); %Lymphocytes 30.6 % (21.0-51.0); %Monocytes 7.6 % (0.0-10.0); %Neutrophils 55.2 % (42.0-75.0); Hemoglobin 14.1 g/dL (12.0-16.0); Mean Corpuscular HGB CONC 32.4 g/dL (32.0-36.0); Mean Corpuscular Hemoglobin 31.4 pg (27.0-31.0); Mean Corpuscular Volume 96.9 fL (78.0-98.0); Mean Platelet Volume 7.5 fL (7.4-10.4); Platelet Count 315 thou/uL (130-400); RBC Distribution Width 13.9 % (11.5-14.5); Red Blood Cell (RBC) Count 4.48 mill/uL (4.20-5.40); White Blood Cell (WBC) Count 8.5 thou/uL (4.8-10.8)
[2020-03-12 05:19] LABS: Anion Gap 13 mmol/L (10-20); BUN (Urea Nitrogen) 7 mg/dL (9.8-20.1); Calc. Creatinine Clearance 0 mL/min (70-130); Calcium 8.3 mg/dL (7.8-10.44); Carbon Dioxide 28 mmol/L (22-29); Chloride 94 mmol/L (98-107); Digoxin 0.75 ng/mL (0.8-2.0); Estimated GFR-MDRD Greater than 90; Glucose 89 mg/dL (70-105); Sodium 133 mmol/L (136-145)
[2020-03-12 05:24] LABS: Potassium 2.3 mmol/L (3.5-5.1)
[2020-03-12] MEDS: NS 0.9% w/ 40 MEQ KCL 1,000 ML IV SCH ×3 (08:03→21:38)
[2020-03-12 08:12] LABS: ALV-art Gradient 23.305 (0-20); Actual Bicarbonate (HCO3a) 25.6 mEq/L (22-28); Base Excess (BEa) 1.2 mEq/L (-2.0 to +3.0); CO2 Tension 39.7 mmHg (35.0-45.0); Carboxyhemoglobin (COHb) 2.9 gm% (0.0-3.0); Hemoglobin (Hb) 13.8 g/dL (12.0-16.0); O2 Tension (PaO2), arterial 76.8 mmHg (80.0-100.0); Potassium - ABG Lab 2.75 mmol/L (3.70-5.30); Puncture Site RRA; pH, Arterial 7.43 (7.35-7.45)
[2020-03-12] MEDS ORDERED: Apixaban 5 MG TAB PO SCH (09:00)
[2020-03-12] MEDS ORDERED: Amiodarone 200 MG TAB PO SCH (09:00)
[2020-03-12] MEDS: Potassium Chloride 20 MEQ in Premix Bag 1 BAG IVPB SCH ×2 (09:29→11:25)
[2020-03-12 11:43] VITALS: BMI 18.7
[2020-03-12 15:03] LABS: Anion Gap 12 mmol/L (10-20); BUN (Urea Nitrogen) 6 mg/dL (9.8-20.1); Calc. Creatinine Clearance 68 mL/min (70-130); Calcium 8.2 mg/dL (7.8-10.44); Carbon Dioxide 23 mmol/L (22-29); Chloride 100 mmol/L (98-107); Estimated GFR-MDRD 86; Glucose 223 mg/dL (70-105); Magnesium 1.9 mg/dL (1.6-2.6); Potassium 4.2 mmol/L (3.5-5.1); Sodium 131 mmol/L (136-145)
--- NOTE | 2020-03-12 19:00 | PDOC.HOSPP ---
- Subjective Encounter Date: 03/12/20 Encounter Time: 18:45 Subjective: f/u for AMS suspected due to polypharmacy. - Objective Vital Signs & Weight: Vital Signs (12 hours) Temp Pulse Resp BP Pulse Ox 03/12/20 16:00 97.8 F 91 16 131/77 93 L 03/12/20 14:56 98 20 03/12/20 11:48 98.6 F 85 20 138/87 98 03/12/20 08:10 74 16 03/12/20 08:00 97.5 F L 77 24 H 119/73 96 Weight Admit Weight 109 lb Weight 109 lb I&O: 03/11/20 03/12/20 03/13/20 06:59 06:59 06:59 Intake Total 2047 Balance 2047 Result Diagrams: 03/12/20 04:46 03/12/20 14:20 Additional Labs: Accuchecks 03/12/20 03/12/20 03/11/20 18:22 12:41 19:25 POC Glucose 138 H 116 H 129 H Laboratory Tests 03/11/20 03/11/20 03/11/20 19:20 19:20 19:43 Sodium 128 L Potassium 3.0 L Lactic Acid 1.1 Magnesium Ur Tricyclics Screen Detected H U Benzodiazepines Scrn Detected H U Cannabinoids Screen Detected H SARS-CoV-2 Rap RNA(RT-PCR) 03/12/20 03/12/20 03/12/20 00:30 04:46 14:20 Sodium 133 L Potassium 2.3 L* Lactic Acid Magnesium 1.9 Ur Tricyclics Screen U Benzodiazepines Scrn U Cannabinoids Screen SARS-CoV-2 Rap RNA(RT-PCR) Not Detected Radiology Reviewed by me: Yes (CT brain - negative) EKG Reviewed by me: Yes (Tele - A-fib) Hospitalist ROS - Medication Medications: Active Medications Generic Name Dose Route Start Last Admin Trade Name Freq PRN Reason Stop Dose Admin Albuterol/Ipratropium 3 ml 03/12/20 07:00 03/12/20 14:56 Duoneb NEB 3 ml [id number] NAA Administration Amiodarone HCl 200 mg 03/12/20 09:00 03/12/20 09:29 Cordarone PO 200 mg DAILY NAA Administration Apixaban 5 mg 03/12/20 09:00 03/12/20 09:29 Eliquis PO 5 mg BID NAA Administration Potassium Chloride/Sodium Chloride 1,000 mls @ 100 mls/hr 03/12/20 05:00 06/22 17:58 Ns 0.9% W/ 40 Meq Kcl IV 1,000 mls .Q10H NAA Administration - Exam General Appearance: NAD, awake alert General - other findings: smiling, responsive Eye: PERRL, anicteric sclera ENT: normocephalic atraumatic, no oropharyngeal lesions Neck: supple, symmetric, no JVD, no thyromegaly, no lymphadenopathy Heart: RRR, no murmur, no gallops, no rubs, normal peripheral pulses Heart - other findings: S1, S2 Respiratory: CTAB, no wheezes, no rales, no ronchi, normal chest expansion Gastrointestinal: soft, non-tender, non-distended, normal bowel sounds, no palpable masses Extremities: no cyanosis, no clubbing, no edema Skin: normal turgor, no lesions Neurological: cranial nerve grossly intact, no new deficit Musculoskeletal: normal tone, generalized weakness Psychiatric: normal affect, A&O x 3 Hosp A/P (1) Acute metabolic encephalopathy Code(s): G93.41 - METABOLIC ENCEPHALOPATHY Status: Acute Plan: Likely due to polypharmacy, supportive mgmt (2) Polypharmacy Code(s): Z79.899 - OTHER PRISON (CURRENT) DRUG THERAPY Status: Acute Plan: limit psychotropes and sedating meds (3) Hypokalemia Code(s): E87.6 - HYPOKALEMIA Status: Acute Plan: Improved, continue KCL supplementation (4) Hyponatremia Code(s): E87.1 - HYPO-OSMOLALITY AND HYPONATREMIA Status: Acute Plan: Improved, decrease IVF's 50ml/h (5) Atrial fibrillation Code(s): I48.91 - UNSPECIFIED ATRIAL FIBRILLATION Status: Chronic Qualifiers: Atrial fibrillation type: other persistent Qualified Code(s): I48.19 - Other persistent atrial fibrillation Plan: Rate-controlled, continue Amiodarone/Eliquis/Digoxin - Plan 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
[2020-03-12] MEDS: Amitriptyline HCl 100 MG TAB PO SCH (21:40)
[2020-03-12] MEDS: Topiramate 100 MG TAB PO SCH (21:40)
[2020-03-12] MEDS: Apixaban 5 MG TAB PO SCH (21:40)
[2020-03-12] MEDS: Atorvastatin Calcium 20 MG TAB PO SCH (21:40)
[2020-03-13 04:38] LABS: Bacteria/HPF None Seen HPF (None Seen); Bilirubin Negative (Negative); Blood, Urine Negative (Negative); Clarity Clear (Clear); Glucose, Urine (Dipstick) Normal (Negative); Ketone, Urine 20 mg/dL (Negative); Leukocyte Negative Leu/uL (Negative); Nitrite Negative (Negative); Protein, Urine (Dipstick) Negative (Neg-Trace); RBC/HPF 0-3 HPF (0-3); Specific Gravity, Urine 1.013 (1.002-1.036); Squamous Epithelial None Seen HPF (0-3); WBC/HPF 0-3 HPF (0-3)
[2020-03-13 04:39] LABS: Urine Culture Reflex No No
[2020-03-13 06:20] LABS: Anion Gap 13 mmol/L (10-20); BUN (Urea Nitrogen) 6 mg/dL (9.8-20.1); Calc. Creatinine Clearance 78 mL/min (70-130); Calcium 8.5 mg/dL (7.8-10.44); Carbon Dioxide 23 mmol/L (22-29); Chloride 106 mmol/L (98-107); Estimated GFR-MDRD Greater than 90; Glucose 135 mg/dL (70-105); Potassium 3.8 mmol/L (3.5-5.1); Sodium 138 mmol/L (136-145)
[2020-03-13] MEDS: Digoxin 0.125 MG TAB PO SCH (09:59)
[2020-03-13] MEDS: Nicotine 21 MG PATCH TD SCH (09:59)
[2020-03-13] MEDS: Apixaban 5 MG TAB PO SCH ×2 (10:00→21:54)
[2020-03-13] MEDS: Aspirin Chewable 81 MG TAB PO SCH (10:00)
[2020-03-13] MEDS: Amiodarone 200 MG TAB PO SCH (10:00)
[2020-03-13] MEDS: Insulin Regular 300 UNITS/3 ML VIAL SC PRN (11:54)
[2020-03-13] MEDS: NS 0.9% w/ 40 MEQ KCL 1,000 ML IV SCH (12:33)
--- NOTE | 2020-03-13 13:28 | PDOC.HOSPP ---
- Subjective Encounter Date: 03/13/20 Encounter Time: 11:50 Subjective: sitting in the bed, asking ''for help'. electrolyes of k and Na improved. - Objective Vital Signs & Weight: Vital Signs (12 hours) Temp Pulse Pulse Pulse Resp BP BP 03/13/20 09:59 105 H 03/13/20 09:24 102 H 93 116/83 124/86 03/13/20 07:27 97.9 F 103 H 15 03/13/20 06:23 96 14 03/13/20 05:27 97.8 F 102 H 22 H BP Pulse Ox 03/13/20 09:59 03/13/20 09:24 03/13/20 07:27 109/76 97 03/13/20 06:23 03/13/20 05:27 120/78 97 Weight Admit Weight 109 lb Weight 109 lb I&O: 03/12/20 03/13/20 03/14/20 06:59 06:59 06:59 Intake Total 2078 120 Output Total 950 Balance 1128 120 Result Diagrams: 03/12/20 04:46 03/13/20 05:36 Additional Labs: Accuchecks 03/13/20 03/13/20 03/12/20 10:43 06:35 19:50 POC Glucose 220 H 140 H 114 H 03/12/20 03/12/20 18:22 12:41 POC Glucose 138 H 116 H Hospitalist ROS - Medication Medications: Active Medications Generic Name Dose Route Start Last Admin Trade Name Freq PRN Reason Stop Dose Admin Albuterol/Ipratropium 3 ml 03/12/20 07:00 03/13/20 06:23 Duoneb NEB 3 ml [id number] NAA Administration Amiodarone HCl 200 mg 03/13/20 09:00 03/13/20 10:00 Cordarone PO 200 mg DAILY NAA Administration Amitriptyline HCl 100 mg 03/12/20 21:00 03/12/20 21:40 Elavil PO 100 mg HS NAA Administration Apixaban 5 mg 03/12/20 21:00 03/13/20 10:00 Eliquis PO 5 mg BID NAA Administration Aspirin 81 mg 03/13/20 09:00 03/13/20 10:00 Aspirin Chewable PO 81 mg DAILY NAA Administration Atorvastatin Calcium 20 mg 03/12/20 21:00 03/12/20 21:40 Lipitor PO 20 mg HS NAA Administration Digoxin 0.125 mg 03/13/20 09:00 03/13/20 09:59 Lanoxin PO 0.125 mg DAILY NAA Administration Potassium Chloride/Sodium Chloride 1,000 mls @ 50 mls/hr 03/12/20 19:09 03/13 12:33 Ns 0.9% W/ 40 Meq Kcl IV 1,000 mls .Q20H NAA Administration Insulin Human Regular 0 units 03/12/20 01:03 03/13/20 11:54 Humulin R SC 3 unit .MILD SLIDING SCALE PRN Administration Mild Correctional Scale Isosorbide Mononitrate 30 mg 03/13/20 09:00 03/13/20 10:01 Imdur Er PO 30 mg DAILY NAA Administration Nicotine 21 mg 03/13/20 09:00 03/13/20 09:59 Nicoderm Patch TD 21 mg DAILY NAA Administration Pantoprazole Sodium 40 mg 03/12/20 21:00 03/13/20 10:01 Protonix PO 40 mg BID NAA Administration Topiramate 200 mg 03/12/20 21:00 03/12/20 21:40 Topamax PO 200 mg HS NAA Administration - Exam General Appearance: ill appearing Eye: PERRL ENT: normocephalic atraumatic Neck: supple Heart: RRR Respiratory: CTAB, normal chest expansion Gastrointestinal: soft, normal bowel sounds Neurological: no focal deficits Psychiatric: A&O x 3 Hosp A/P - Plan (1) Acute metabolic encephalopathy Code(s): G93.41 - METABOLIC ENCEPHALOPATHY Status: Acute Plan: Likely due to polypharmacy, supportive mgmt (2) Polypharmacy Code(s): Z79.899 - OTHER ACCESS MANAGER (CURRENT) DRUG THERAPY Status: Acute Plan: limit psychotropes and sedating meds (3) Hypokalemia Code(s): E87.6 - HYPOKALEMIA Status: Acute Plan: Improved, continue KCL supplementation (4) Hyponatremia Code(s): E87.1 - HYPO-OSMOLALITY AND HYPONATREMIA Status: Acute Plan: Improved, decrease IVF's 50ml/h (5) Atrial fibrillation Rate-controlled, continue Amiodarone/Eliquis/Digoxin -restart the digoxin, Ka nd Cr ok. Limit psychotropes/sedation Will get PT evaluation to make sure, she is ambulating without distress and stable to be discharged to home.
--- NOTE | 2020-03-13 18:18 | ULT ---
FOCUSED ULTRASOUND OF THE URINARY BLADDER 03/13/20 HISTORY: Urinary bladder distention with Liz catheter. FINDINGS: Focused ultrasound of the pelvis demonstrates a completely decompressed urinary bladder containing a Liz catheter. IMPRESSION: Empty urinary bladder containing a Liz catheter. POS: [facility]
[2020-03-13] MEDS: Atorvastatin Calcium 20 MG TAB PO SCH (21:54)
[2020-03-13] MEDS: Topiramate 100 MG TAB PO SCH (21:54)
[2020-03-13] MEDS: Amitriptyline HCl 100 MG TAB PO SCH (21:55)
[2020-03-14] MEDS ORDERED: Metoprolol Tartrate 5 MG/5 ML VIAL IVP PRN (02:27)
[2020-03-14] MEDS: Acetaminophen 325 MG TAB PO PRN ×3 (03:08→20:56)
[2020-03-14] MEDS: metroNIDAZOLE 500 MG in Premix Bag 1 BAG IVPB SCH ×3 (05:49→18:36)
[2020-03-14] MEDS: NS 0.9% w/ 40 MEQ KCL 1,000 ML IV SCH (09:22)
[2020-03-14] MEDS: Apixaban 5 MG TAB PO SCH ×2 (09:27→20:56)
[2020-03-14] MEDS: Amiodarone 200 MG TAB PO SCH (09:29)
[2020-03-14] MEDS: Nicotine 21 MG PATCH TD SCH (09:34)
[2020-03-14] MEDS: Digoxin 0.125 MG TAB PO SCH (09:42)
[2020-03-14] MEDS: Aspirin Chewable 81 MG TAB PO SCH (09:43)
[2020-03-14] MEDS ORDERED: oxyCODONE/Acetaminophen 5 mg/325 mg Tablet PO PRN (10:53)
[2020-03-14] MEDS ORDERED: ALPRAZolam 0.25 MG TAB PO PRN (10:53)
[2020-03-14] MEDS ORDERED: ALPRAZolam 0.5 MG TAB PO SCH (12:15)
--- NOTE | 2020-03-14 13:02 | PDOC.HOSPP ---
- Subjective Encounter Date: 03/14/20 Encounter Time: 09:10 Subjective: pt is very noisy -- rambling and screaming, give me something, otherwise dominga going to . per family, sometimes she behaves this way. she is tachy, normotensive. Lytes are ok. cannot give seroquel as interaction w.. amiod causes QT prolongation, will try lexapro, besides xanax. - Objective Vital Signs & Weight: Vital Signs (12 hours) Temp Pulse Resp BP Pulse Ox 03/14/20 11:00 97.9 F 110 H 20 114/81 94 L 03/14/20 09:42 110 H 03/14/20 08:15 100 16 03/14/20 07:26 98.1 F 89 20 118/71 96 03/14/20 06:00 97.9 F 111 H 20 107/70 92 L Weight Admit Weight 109 lb Weight 109 lb I&O: 03/13/20 03/14/20 03/15/20 06:59 06:59 06:59 Intake Total 2078 960 Output Total 950 350 Balance 1128 610 Result Diagrams: 03/12/20 04:46 03/13/20 05:36 Additional Labs: Accuchecks 03/14/20 03/14/20 03/13/20 10:52 06:00 17:44 POC Glucose 185 H 118 H 123 H Hospitalist ROS - Medication Medications: Active Medications Generic Name Dose Route Start Last Admin Trade Name Freq PRN Reason Stop Dose Admin Acetaminophen 650 mg 03/14/20 02:50 03/14/20 09:25 Tylenol PO 650 mg Q6H PRN Administration Mild Pain (1-3) Albuterol/Ipratropium 3 ml 03/12/20 07:00 03/14/20 08:15 Duoneb NEB 3 ml [id number] NAA Administration Amiodarone HCl 200 mg 03/13/20 09:00 03/14/20 09:29 Cordarone PO 200 mg DAILY NAA Administration Amitriptyline HCl 100 mg 03/12/20 21:00 03/13/20 21:55 Elavil PO 100 mg HS NAA Administration Apixaban 5 mg 03/12/20 21:00 03/14/20 09:27 Eliquis PO 5 mg BID NAA Administration Aspirin 81 mg 03/13/20 09:00 03/14/20 09:43 Aspirin Chewable PO 81 mg DAILY NAA Administration Atorvastatin Calcium 20 mg 03/12/20 21:00 03/13/20 21:54 Lipitor PO 20 mg HS NAA Administration Digoxin 0.125 mg 03/13/20 09:00 03/14/20 09:42 Lanoxin PO 0.125 mg DAILY NAA Administration Potassium Chloride/Sodium Chloride 1,000 mls @ 50 mls/hr 03/12/20 19:09 03/14 09:22 Ns 0.9% W/ 40 Meq Kcl IV 1,000 mls .Q20H NAA Administration Metronidazole 500 mg/ Device 100 mls @ 100 mls/hr 03/14/20 06:00 03/14/20 11: 06 IVPB 100 mls Q6HR NAA Administration Insulin Human Regular 0 units 03/12/20 01:03 03/13/20 11:54 Humulin R SC 3 unit .MILD SLIDING SCALE PRN Administration Mild Correctional Scale Isosorbide Mononitrate 30 mg 03/13/20 09:00 03/14/20 09:45 Imdur Er PO 30 mg DAILY NAA Administration Metoprolol Tartrate 5 mg 03/14/20 02:27 03/14/20 02:38 Lopressor IVP 03/15/20 02:28 5 mg ONE PRN Administration Cardiac Arrythmia Nicotine 21 mg 03/13/20 09:00 03/14/20 09:34 Nicoderm Patch TD 21 mg DAILY NAA Administration Oxycodone/Acetaminophen 1 tab 03/14/20 10:53 03/14/20 11:07 Percocet 5/325 PO 1 tab Q8H PRN Administration Moderate Pain (4-6) Pantoprazole Sodium 40 mg 03/12/20 21:00 03/14/20 09:57 Protonix PO Not Given BID NAA Topiramate 200 mg 03/12/20 21:00 03/13/20 21:54 Topamax PO 200 mg HS NAA Administration - Exam General - other findings: screaming, cursing. ENT: normocephalic atraumatic Neck: supple Neurological: no focal deficits Psychiatric - other findings: screaming Hosp A/P - Plan (1) Acute metabolic encephalopathy Code(s): G93.41 - METABOLIC ENCEPHALOPATHY Status: Acute Plan: Likely due to polypharmacy, supportive mgmt (2) Polypharmacy Code(s): Z79.899 - OTHER MICROGRAPHICS SERVICES SUPERVISOR (CURRENT) DRUG THERAPY Status: Acute Plan: limit psychotropes and sedating meds (3) Hypokalemia Code(s): E87.6 - HYPOKALEMIA Status: Acute Plan: Improved, continue KCL supplementation (4) Hyponatremia Code(s): E87.1 - HYPO-OSMOLALITY AND HYPONATREMIA Status: Acute Plan: Improved, decrease IVF's 50ml/h (5) Atrial fibrillation Rate-controlled, continue Amiodarone/Eliquis/Digoxin -restart the digoxin, Ka nd Cr ok. Limit psychotropes/sedation Will get PT evaluation to make sure, she is ambulating without distress and stable to be discharged to home. 12th Generalized anxiety d/o -- sedatives were on hold, now we need to restart them. -No dig toxicity as its level low. - pt on clonidine at home and trazodone qhs. -restart them, as she is very agitated this am. - cannot give seroquel as interaction w.. amiod causes QT prolongation, -if needed further, will try lexapro, besides xanax. -- Lytes are ok. -TSH in nl range, recently done - will fw on b12/folate and vit D level. dc ferrer and trial of voiding. Not much we can do at this point other than supportive. monitor for another day, if agitation resolves, dc home. Lives w.. spouse at home.
[2020-03-14] MEDS: clonazePAM 1 MG TAB PO SCH ×2 (15:22→20:55)
[2020-03-14] MEDS ORDERED: diphenhydrAMINE 25 MG CAP PO PRN (18:01)
[2020-03-14] MEDS: Topiramate 100 MG TAB PO SCH (20:55)
[2020-03-14] MEDS: Atorvastatin Calcium 20 MG TAB PO SCH (20:57)
[2020-03-14] MEDS: traZODone HCl 50 MG TAB PO SCH (20:57)
[2020-03-15] MEDS: metroNIDAZOLE 500 MG in Premix Bag 1 BAG IVPB SCH ×5 (00:36→23:57)
[2020-03-15 05:01] LABS: Hemoglobin 12.6 g/dL (12.0-16.0); Platelet Count 261 thou/uL (130-400)
[2020-03-15] MEDS: Digoxin 0.125 MG TAB PO SCH (08:31)
[2020-03-15] MEDS: Aspirin Chewable 81 MG TAB PO SCH (08:32)
[2020-03-15] MEDS: Amiodarone 200 MG TAB PO SCH (08:32)
[2020-03-15] MEDS: clonazePAM 1 MG TAB PO SCH ×3 (08:32→21:19)
[2020-03-15] MEDS: Apixaban 5 MG TAB PO SCH ×2 (08:32→21:19)
[2020-03-15] MEDS: Nicotine 21 MG PATCH TD SCH (08:32)
[2020-03-15] MEDS: NS 0.9% w/ 40 MEQ KCL 1,000 ML IV SCH (10:19)
[2020-03-15] MEDS: ALPRAZolam 0.5 MG TAB PO PRN (12:09)
[2020-03-15] MEDS: traZODone HCl 50 MG TAB PO SCH (21:19)
[2020-03-15] MEDS: Atorvastatin Calcium 20 MG TAB PO SCH (21:19)
[2020-03-15] MEDS: Topiramate 100 MG TAB PO SCH (21:20)
[2020-03-16] MEDS: ALPRAZolam 0.5 MG TAB PO PRN (00:28)
[2020-03-16 05:35] LABS: Calc. Creatinine Clearance 76 mL/min (70-130); Estimated GFR-MDRD Greater than 90
[2020-03-16] MEDS: NS 0.9% w/ 40 MEQ KCL 1,000 ML IV SCH (07:31)
[2020-03-16] MEDS: metroNIDAZOLE 500 MG in Premix Bag 1 BAG IVPB SCH ×3 (07:32→18:55)
[2020-03-16] MEDS: clonazePAM 1 MG TAB PO SCH ×3 (09:59→21:02)
[2020-03-16] MEDS: Amiodarone 200 MG TAB PO SCH (09:59)
[2020-03-16] MEDS: Nicotine 21 MG PATCH TD SCH (09:59)
[2020-03-16] MEDS: Aspirin Chewable 81 MG TAB PO SCH (09:59)
[2020-03-16] MEDS: Apixaban 5 MG TAB PO SCH ×2 (09:59→21:02)
[2020-03-16] MEDS: Digoxin 0.125 MG TAB PO SCH (09:59)
[2020-03-16] MEDS: Acetaminophen 325 MG TAB PO PRN (10:00)
--- NOTE | 2020-03-16 13:52 | PDOC.HOSPP ---
- Subjective Encounter Date: 03/16/20 Encounter Time: 08:45 Subjective: pt doing well, very appropriate and pleasant to talk to this morning. explained that we are waiting for rehab options. she is ok ..w that.. - Objective Vital Signs & Weight: Vital Signs (12 hours) Temp Pulse Pulse Pulse Resp BP BP 03/16/20 11:15 98.1 F 108 H 19 03/16/20 08:58 105 H 94 135/84 110/68 03/16/20 08:05 98.4 F 80 22 H BP Pulse Ox 03/16/20 11:15 117/84 97 03/16/20 08:58 03/16/20 08:05 135/84 95 Weight Admit Weight 109 lb Weight 109 lb I&O: 03/15/20 03/16/20 03/17/20 06:59 06:59 06:59 Intake Total 5270 1780 180 Balance 5270 1780 180 Result Diagrams: 03/15/20 04:35 03/16/20 05:05 Additional Labs: Accuchecks 03/16/20 03/15/20 03/15/20 11:12 21:27 17:59 POC Glucose 146 H 103 128 H Hospitalist ROS - Medication Medications: Active Medications Generic Name Dose Route Start Last Admin Trade Name Freq PRN Reason Stop Dose Admin Acetaminophen 650 mg 03/14/20 02:50 03/16/20 10:00 Tylenol PO 650 mg Q6H PRN Administration Mild Pain (1-3) Alprazolam 0.5 mg 03/14/20 12:13 03/16/20 00:28 Xanax PO 0.5 mg TIDPRN PRN Administration Anxiety Amiodarone HCl 200 mg 03/13/20 09:00 03/16/20 09:59 Cordarone PO 200 mg DAILY NAA Administration Apixaban 5 mg 03/12/20 21:00 03/16/20 09:59 Eliquis PO 5 mg BID NAA Administration Aspirin 81 mg 03/13/20 09:00 03/16/20 09:59 Aspirin Chewable PO 81 mg DAILY NAA Administration Atorvastatin Calcium 20 mg 03/12/20 21:00 03/15/20 21:19 Lipitor PO 20 mg HS NAA Administration Clonazepam 1 mg 03/14/20 15:00 03/16/20 09:59 Klonopin PO 1 mg TID NAA Administration Digoxin 0.125 mg 03/13/20 09:00 03/16/20 09:59 Lanoxin PO 0.125 mg DAILY NAA Administration Diphenhydramine HCl 25 mg 03/14/20 18:01 03/14/20 18:36 Benadryl PO 25 mg Q8H PRN Administration Itching Potassium Chloride/Sodium Chloride 1,000 mls @ 50 mls/hr 03/12/20 19:09 03/16 07:31 Ns 0.9% W/ 40 Meq Kcl IV 1,000 mls .Q20H NAA Administration Metronidazole 500 mg/ Device 100 mls @ 100 mls/hr 03/14/20 06:00 03/16/20 12: 03 IVPB 100 mls Q6HR NAA Administration Insulin Human Regular 0 units 03/12/20 01:03 03/13/20 11:54 Humulin R SC 3 unit .MILD SLIDING SCALE PRN Administration Mild Correctional Scale Isosorbide Mononitrate 30 mg 03/13/20 09:00 03/16/20 09:59 Imdur Er PO 30 mg DAILY NAA Administration Nicotine 21 mg 03/13/20 09:00 03/16/20 09:59 Nicoderm Patch TD 21 mg DAILY NAA Administration Oxycodone/Acetaminophen 1 tab 03/14/20 10:53 03/14/20 11:07 Percocet 5/325 PO 1 tab Q8H PRN Administration Moderate Pain (4-6) Pantoprazole Sodium 40 mg 03/12/20 21:00 03/16/20 10:00 Protonix PO 40 mg BID NAA Administration Sodium Chloride 10 ml 03/12/20 01:08 03/16/20 09:59 Flush - Normal Saline IVF 10 ml PRN PRN Administration Saline Flush Topiramate 200 mg 03/12/20 21:00 03/15/20 21:20 Topamax PO 200 mg HS NAA Administration Trazodone HCl 100 mg 03/14/20 21:00 03/15/20 21:19 Desyrel PO 100 mg HS NAA Administration - Exam General Appearance: NAD, awake alert Eye: PERRL ENT: normocephalic atraumatic Neck: supple Heart: RRR, normal peripheral pulses Respiratory: CTAB, normal chest expansion Gastrointestinal: soft, normal bowel sounds Neurological: no focal deficits Hosp A/P - Plan (1) Acute metabolic encephalopathy Code(s): G93.41 - METABOLIC ENCEPHALOPATHY Status: Acute Plan: Likely due to polypharmacy, supportive mgmt (2) Polypharmacy Code(s): Z79.899 - OTHER INFORMATION TECHNOLOGY OFFICER (CURRENT) DRUG THERAPY Status: Acute Plan: limit psychotropes and sedating meds (3) Hypokalemia Code(s): E87.6 - HYPOKALEMIA Status: Acute Plan: Improved, continue KCL supplementation (4) Hyponatremia Code(s): E87.1 - HYPO-OSMOLALITY AND HYPONATREMIA Status: Acute Plan: Improved, decrease IVF's 50ml/h (5) Atrial fibrillation Rate-controlled, continue Amiodarone/Eliquis/Digoxin -restart the digoxin, Ka nd Cr ok. Limit psychotropes/sedation Will get PT evaluation to make sure, she is ambulating without distress and stable to be discharged to home. Generalized anxiety d/o -- sedatives were on hold, now we need to restart them. -No dig toxicity as its level low. - pt on clonidine at home and trazodone qhs. -restart them, as she is very agitated this am. - cannot give seroquel as interaction w.. amiod causes QT prolongation, -if needed further, will try lexapro, besides xanax. -- Lytes are ok. -TSH in nl range, recently done - will fw on b12/folate and vit D level. dc ferrer and trial of voiding. Not much we can do at this point other than supportive. monitor for another day, if agitation resolves, dc home. Lives w.. spouse at home. plan for rehab per PT recommendation. Await for rehab bed availability.
[2020-03-16] MEDS: Insulin Regular 300 UNITS/3 ML VIAL SC PRN (17:53)
[2020-03-16] MEDS ORDERED: metroNIDAZOLE 500 MG TAB PO SCH (19:00)
[2020-03-16] MEDS: traZODone HCl 50 MG TAB PO SCH (21:01)
[2020-03-16] MEDS: Topiramate 100 MG TAB PO SCH (21:02)
[2020-03-16] MEDS: Atorvastatin Calcium 20 MG TAB PO SCH (21:02)
[2020-03-17] MEDS: metroNIDAZOLE 500 MG TAB PO SCH ×4 (00:12→17:40)
[2020-03-17] MEDS: NS 0.9% w/ 40 MEQ KCL 1,000 ML IV SCH (05:38)
[2020-03-17] MEDS: Nicotine 21 MG PATCH TD SCH (09:51)
[2020-03-17] MEDS: Digoxin 0.125 MG TAB PO SCH (09:52)
[2020-03-17] MEDS: Amiodarone 200 MG TAB PO SCH (09:52)
[2020-03-17] MEDS: Apixaban 5 MG TAB PO SCH ×2 (09:52→21:08)
[2020-03-17] MEDS: Aspirin Chewable 81 MG TAB PO SCH (09:53)
[2020-03-17] MEDS: clonazePAM 1 MG TAB PO SCH ×3 (09:53→21:07)
[2020-03-17] MEDS: ALPRAZolam 0.5 MG TAB PO PRN (12:32)
[2020-03-17] MEDS: Insulin Regular 300 UNITS/3 ML VIAL SC PRN ×2 (12:32→17:40)
--- NOTE | 2020-03-17 14:14 | PDOC.HOSPP ---
- Subjective Encounter Date: 03/17/20 Encounter Time: 09:10 Subjective: pt doing well. comfortable. some crackles at the bases, poor breathing effort. afebrile. - Objective Vital Signs & Weight: Vital Signs (12 hours) Temp Pulse Pulse Resp BP BP BP 03/17/20 12:00 97.4 F L 102 H 16 135/88 03/17/20 09:52 98 03/17/20 08:55 120 H 121/96 H 131/80 03/17/20 08:00 98.3 F 98 16 123/80 03/17/20 05:41 97.9 F 100 20 120/82 Pulse Ox 03/17/20 12:00 98 03/17/20 09:52 03/17/20 08:55 03/17/20 08:00 93 L 03/17/20 05:41 92 L Weight Admit Weight 109 lb Weight 109 lb I&O: 03/16/20 03/17/20 03/18/20 06:59 06:59 06:59 Intake Total 1779 1911 240 Balance 1781911 240 Result Diagrams: 03/15/20 04:35 03/16/20 05:05 Additional Labs: Accuchecks 03/17/20 03/17/20 03/16/20 11:03 00:48 16:41 POC Glucose 161 H 107 170 H Hospitalist ROS - Medication Medications: Active Medications Generic Name Dose Route Start Last Admin Trade Name Freq PRN Reason Stop Dose Admin Acetaminophen 650 mg 03/14/20 02:50 03/16/20 10:00 Tylenol PO 650 mg Q6H PRN Administration Mild Pain (1-3) Alprazolam 0.5 mg 03/14/20 12:13 03/17/20 12:32 Xanax PO 0.5 mg TIDPRN PRN Administration Anxiety Amiodarone HCl 200 mg 03/13/20 09:00 03/17/20 09:52 Cordarone PO 200 mg DAILY NAA Administration Apixaban 5 mg 03/12/20 21:00 03/17/20 09:52 Eliquis PO 5 mg BID NAA Administration Aspirin 81 mg 03/13/20 09:00 03/17/20 09:53 Aspirin Chewable PO 81 mg DAILY NAA Administration Atorvastatin Calcium 20 mg 03/12/20 21:00 03/16/20 21:02 Lipitor PO 20 mg HS NAA Administration Clonazepam 1 mg 03/14/20 15:00 03/17/20 09:53 Klonopin PO 1 mg TID NAA Administration Digoxin 0.125 mg 03/13/20 09:00 03/17/20 09:52 Lanoxin PO 0.125 mg DAILY NAA Administration Diphenhydramine HCl 25 mg 03/14/20 18:01 03/14/20 18:36 Benadryl PO 25 mg Q8H PRN Administration Itching Potassium Chloride/Sodium Chloride 1,000 mls @ 50 mls/hr 03/12/20 19:09 03/17 05:38 Ns 0.9% W/ 40 Meq Kcl IV 1,000 mls .Q20H NAA Administration Insulin Human Regular 0 units 03/12/20 01:03 03/17/20 12:32 Humulin R SC 2 unit .MILD SLIDING SCALE PRN Administration Mild Correctional Scale Isosorbide Mononitrate 30 mg 03/13/20 09:00 03/17/20 09:53 Imdur Er PO 30 mg DAILY NAA Administration Metronidazole 500 mg 03/16/20 23:59 03/17/20 12:32 Flagyl PO 500 mg Q6HR NAA Administration Nicotine 21 mg 03/13/20 09:00 03/17/20 09:51 Nicoderm Patch TD 21 mg DAILY NAA Administration Oxycodone/Acetaminophen 1 tab 03/14/20 10:53 03/14/20 11:07 Percocet 5/325 PO 1 tab Q8H PRN Administration Moderate Pain (4-6) Pantoprazole Sodium 40 mg 03/12/20 21:00 03/17/20 09:53 Protonix PO 40 mg BID NAA Administration Sodium Chloride 10 ml 03/12/20 01:08 03/17/20 09:51 Flush - Normal Saline IVF 10 ml PRN PRN Administration Saline Flush Topiramate 200 mg 03/12/20 21:00 03/16/20 21:02 Topamax PO 200 mg HS NAA Administration Trazodone HCl 100 mg 03/14/20 21:00 03/16/20 21:01 Desyrel PO 100 mg HS NAA Administration - Exam General Appearance: NAD, awake alert Eye: PERRL ENT: normocephalic atraumatic Neck: supple Heart: RRR, normal peripheral pulses Respiratory: CTAB, normal chest expansion Respiratory - other findings: poor breathing attempt --crackles at the bases Gastrointestinal: soft, normal bowel sounds Neurological: no focal deficits Psychiatric: normal affect, normal behavior, A&O x 3 Hosp A/P - Plan (1) Acute metabolic encephalopathy Code(s): G93.41 - METABOLIC ENCEPHALOPATHY Status: Acute Plan: Likely due to polypharmacy, supportive mgmt (2) Polypharmacy Code(s): Z79.899 - OTHER NURSERY NURSE (CURRENT) DRUG THERAPY Status: Acute Plan: limit psychotropes and sedating meds (3) Hypokalemia Code(s): E87.6 - HYPOKALEMIA Status: Acute Plan: Improved, continue KCL supplementation (4) Hyponatremia Code(s): E87.1 - HYPO-OSMOLALITY AND HYPONATREMIA Status: Acute Plan: Improved, decrease IVF's 50ml/h (5) Atrial fibrillation Rate-controlled, continue Amiodarone/Eliquis/Digoxin -restart the digoxin, Ka nd Cr ok. Limit psychotropes/sedation cdiff colitis -finish 7 day course of flagyl, ideally vanc, since she is on flagyl already, will finish the course. Will get PT evaluation to make sure, she is ambulating without distress and stable to be discharged to home. Generalized anxiety d/o -- sedatives were on hold, now we need to restart them. -No dig toxicity as its level low. - pt on clonidine at home and trazodone qhs. - cannot give seroquel as interaction w.. amiodarone causes QT prolongation, -if needed further, will try lexapro, besides xanax. - pending rehab.
[2020-03-17 18:34] LABS: Bacteria/HPF 4+ HPF (None Seen); Bilirubin Negative (Negative); Blood, Urine Negative (Negative); Clarity Clear (Clear); Glucose, Urine (Dipstick) Normal (Negative); Ketone, Urine Negative (Negative); Leukocyte 500 Leu/uL (Negative); Nitrite Negative (Negative); Protein, Urine (Dipstick) Negative (Neg-Trace); RBC/HPF 0-3 HPF (0-3); Specific Gravity, Urine 1.004 (1.002-1.036); Squamous Epithelial None Seen HPF (0-3); Urobilinogen Normal mg/dL (Less than 2); WBC/HPF 21-50 HPF (0-3)
[2020-03-17 18:35] LABS: Urine Culture Reflex Yes Yes
[2020-03-17] MEDS: traZODone HCl 50 MG TAB PO SCH (21:07)
[2020-03-17] MEDS: Atorvastatin Calcium 20 MG TAB PO SCH (21:08)
[2020-03-17] MEDS: Topiramate 100 MG TAB PO SCH (21:08)
[2020-03-18] MEDS: metroNIDAZOLE 500 MG TAB PO SCH ×3 (00:33→11:02)
[2020-03-18] MEDS: NS 0.9% w/ 40 MEQ KCL 1,000 ML IV SCH (02:36)
[2020-03-18 05:27] LABS: Platelet Count 257 thou/uL (130-400)
[2020-03-18] MEDS: Apixaban 5 MG TAB PO SCH (09:30)
[2020-03-18] MEDS: Aspirin Chewable 81 MG TAB PO SCH (09:30)
[2020-03-18] MEDS: Amiodarone 200 MG TAB PO SCH (09:30)
[2020-03-18] MEDS: Nicotine 21 MG PATCH TD SCH (09:30)
[2020-03-18] MEDS: clonazePAM 1 MG TAB PO SCH (09:30)
[2020-03-18] MEDS: Digoxin 0.125 MG TAB PO SCH (09:30)
[2020-03-18 11:12] VITALS: BP 153/96; TEMP 97.8
[2020-03-18] MEDS: Insulin Regular 300 UNITS/3 ML VIAL SC PRN (11:12)
--- NOTE | 2020-03-19 09:59 | DIS ---
DATE OF ADMISSION: 03/11/2020 DATE OF DISCHARGE: 03/18/2020 HOME MEDICATIONS: Remained the same. They are 1. Albuterol/ProAir two puffs q.6 as needed. 2. Amiodarone 200 mg daily. 3. Apixaban 5 mg twice a day. 4. Aspirin 81 mg daily. 5. Lipitor 20 mg at bedtime. 6. Clonazepam 2 mg three times a day. 7. Digoxin 0.125 mg daily. 8. Trulicity 1.5 mg subcu every 7 days. 9. Lasix 20 mg daily. 10. Aspart 70/30 50 units subcu twice a day. 11. Nicotine patch 21 mg as needed. 12. Imdur ER 30 mg daily. 13. Protonix 40 mg daily. 14. Trazodone 100 mg at bedtime. The changes from her home medications are due to polypharmacy effect. We discontinued the Phenergan. Changed the Protonix from twice a day to once a day. Lasix has been changed from 40 mg daily to 20 mg daily. The new medication is Flagyl 500 mg t.i.d. for 5 more days. DISCHARGE DIAGNOSES: 1. Acute metabolic encephalopathy due to polypharmacy, resolved completely. 2. Hypokalemia that has resolved with supplementation. 3. Hyponatremia, improved. 4. Chronic atrial fibrillation, on amiodarone, Eliquis, as well as digoxin. 5. C difficile colitis. She will be completing the course of Flagyl. 6. Generalized anxiety disorder. The patient on clonidine as well as trazodone and that will be continued. PHYSICAL EXAMINATION: VITAL SIGNS: On the day of discharge, temperature is 97.9, pulse 107, she is saturating 95% on room air. Orthostatic is negative and blood pressure 145/98. GENERAL: The patient is alert, oriented, and she appears very well. She has no acute distress. Discharge plan discussed and she is agreeable to go home. CARDIOVASCULAR: Regular rate and rhythm without murmurs, rubs, or gallops. LUNGS: Clear to auscultation bilaterally without wheezing, rales, or rhonchi. ABDOMEN: Soft, nontender, nondistended. Good bowel sounds. HOSPITAL COURSE: 59-year-old female admitted for a change in mental status due to polypharmacy effect. She also had some electrolyte abnormality including sodium and potassium. Mostly supportive management and holding her medications helped to improve her mentation. Electrolytes were replaced. The patient for two days a lot of agitation and screaming. With mainly supportive care, she got better. At some point, we decided to send her to the rehab, however, that did not materialize, required long stay. Also, she has only 13 days available to use for the rehab option based on her insurance. Since she is clinically sound and physically strong enough to go home, we will arrange for home health visit. The patient is stable to be discharged home. DISCHARGE INSTRUCTIONS: ACTIVITY: As tolerated. DIET: Regular diet. FOLLOWUP: Follow up with PCP in one week. TIME SPENT: Discharge time took over 30 minutes. Job ID: [id number] [id number]
== END 2020-03-18 13:30 | disposition home health service (06) | DRG 92 ==
LOC: ERS 19:07 → 2SE 23:39
PROVIDERS: ADMIT Internal Medicine; ATTEND Internal Medicine
DX: G92 Toxic encephalopathy (principal); E87.1 Hypo-osmolality and hyponatremia; E11.9 Type 2 diabetes mellitus without complications; E87.6 Hypokalemia; F41.1 Generalized anxiety disorder; E78.5 Hyperlipidemia, unspecified; I10 Essential (primary) hypertension; F31.9 Bipolar disorder, unspecified; F20.9 Schizophrenia, unspecified; E78.00 Pure hypercholesterolemia, unspecified; I25.10 Atherosclerotic heart disease of native coronary artery without angina pectoris; F17.210 Nicotine dependence, cigarettes, uncomplicated; I48.91 Unspecified atrial fibrillation; Z90.49 Acquired absence of other specified parts of digestive tract; Z90.710 Acquired absence of both cervix and uterus; Z95.5 Presence of coronary angioplasty implant and graft; Z88.8 Allergy status to other drugs, medicaments and biological substances; Z88.1 Allergy status to other antibiotic agents; Z79.01 Long term (current) use of anticoagulants
CPT/HCPCS: 36415; 36416; 51701; 70450; 71045; 76856; 80048; 80053; 80162; 80306; 81001; 81003; 82306; 82565; 82607; 82746; 82805; 83605; 83735; 85014; 85018; 85025; 85049; 87077; 87086; 87186; 87324; 87449; 87493; 93005; 94640; 94760; 96360; 96361; A4353; J1815; J3480; J7620; Q0163; U0002

== ENCOUNTER 2020-07-07 13:54 | Outpatient (CLI) | payer OTHER ==
--- NOTE | 2020-07-07 14:43 | MMO ---
Bilateral MAMMO Bilat Screen [facility]DI. CLINICAL HISTORY: Patient is 60 years old and is seen for screening. The patient has no family history of breast cancer. The patient has no personal history of cancer. VIEWS: The views performed were: bilateral craniocaudal and bilateral mediolateral oblique. FILMS COMPARED: The present examination has been compared to prior imaging studies performed at [facility] on 06/17/2015, 06/22/2016, 07/24/2017 and 06/19/2019. This study has been interpreted with the assistance of computer-aided detection. MAMMOGRAM FINDINGS: There are scattered fibroglandular densities. There are no suspicious masses, suspicious calcifications, or new areas of architectural distortion. IMPRESSION: THERE IS NO MAMMOGRAPHIC EVIDENCE OF MALIGNANCY. A ROUTINE FOLLOW-UP MAMMOGRAM IN 1 YEAR IS RECOMMENDED. ACR BI-RADS Category 1 - Negative MAMMOGRAPHY NOTE: 1. A negative mammogram report should not delay a biopsy if a dominant of clinically suspicious mass is present. 2. Approximately 10% to 15% of breast cancers are not detected by mammography. 3. Adenosis and dense breasts may obscure an underlying neoplasm. Reported by: LEVON YANG MD Electonically Signed: [id number]
== END 2020-07-07 13:55 | disposition home or self-care (01) ==
LOC: BICMAMMO 13:54
PROVIDERS: ATTEND Physician Assistant
DX: Z12.31 Encounter for screening mammogram for malignant neoplasm of breast (principal)
CPT/HCPCS: 77067

== ENCOUNTER 2020-10-18 10:54 | Emergency (ER) | payer OTHER ==
[2020-10-18] MEDS ORDERED: Haloperidol Lactate 5 MG/ML VIAL ONE (17:24)
[2020-10-18] MEDS ORDERED: Lorazepam 2 MG/ML VIAL ONE (17:24)
[2020-10-18 17:45] LABS: Bacteria/HPF None Seen HPF (None Seen); Bilirubin Negative (Negative); Blood, Urine Negative (Negative); Clarity Turbid (Clear); Glucose, Urine (Dipstick) Normal (Negative); Ketone, Urine Negative (Negative); Leukocyte Negative Leu/uL (Negative); Nitrite Negative (Negative); Protein, Urine (Dipstick) Negative (Neg-Trace); RBC/HPF 0-3 HPF (0-3); Specific Gravity, Urine 1.021 (1.002-1.036); Squamous Epithelial None Seen HPF (0-3); Urobilinogen Normal mg/dL (Less than 2)
[2020-10-18 17:48] LABS: Unclassified Crystals 2+ HPF (None Seen)
[2020-10-18 17:49] LABS: Yeast-Budding None Seen HPF (None Seen)
--- NOTE | 2020-10-18 17:58 | CT ---
CT HEAD WITHOUT CONTRAST: HISTORY: Pain. FINDINGS: No parenchymal hemorrhage. No extraaxial hematoma. No midline shift. The basilar cisterns are patent. Brain volume is age appropriate. Cortical jennings white matter differentiation is preserved. No hydrocephalus. Intact calvarium. Adequate aeration of the sinuses and mastoid air cells. IMPRESSION: No acute intracranial process. POS: OFF
[2020-10-18 18:03] LABS: Amphetamine Not Detected (NotDetected); Barbiturates Screen Not Detected (NotDetected); Benzodiazepine Screen Not Detected (NotDetected); Cocaine Metabolite Screen Not Detected (NotDetected); Medtox Control Line Valid? VALID (VALID); Medtox Reader # READER 4; Methadone Not Detected (NotDetected); Methamphetamine Not Detected (NotDetected); Opiate Screen Not Detected (NotDetected); Oxycodone Screen Not Detected (NotDetected); Phencyclidine (PCP) Not Detected (NotDetected); THC/Cannabinoid Screen Detected (NotDetected); Tricyclic Screen Detected (NotDetected)
[2020-10-18] MEDS ORDERED: Ketamine 50 MG/ML (10ML VIAL) ONE (18:32)
[2020-10-18 19:48] LABS: #Basophils 0.1 thou/uL (0.0-0.2); #Eosinphils 0.1 thou/uL (0.0-0.7); #Lymphocytes 2.9 thou/uL (1.20-3.40); #Monocytes 0.9 thou/uL (0.11-0.59); %Basophils 0.4 % (0.0-1.0); %Eosinophils 0.5 % (0.0-10.0); %Monocytes 7.1 % (0.0-10.0); Hemoglobin 15.2 g/dL (12.0-16.0); Mean Corpuscular Hemoglobin 32.7 pg (27.0-31.0); Mean Corpuscular Volume 99.1 fL (78.0-98.0); Mean Platelet Volume 6.8 fL (7.4-10.4); Platelet Count 267 thou/uL (130-400); RBC Distribution Width 11.2 % (11.5-14.5); Red Blood Cell (RBC) Count 4.64 mill/uL (4.20-5.40); White Blood Cell (WBC) Count 12.9 thou/uL (4.8-10.8)
[2020-10-18 19:50] LABS: INR-International Normal Ratio 1.3; PTT 31.7 sec (22.9-36.1)
[2020-10-18 20:46] LABS: Anion Gap 14 mmol/L (10-20); BUN (Urea Nitrogen) 13 mg/dL (9.8-20.1); Calc. Creatinine Clearance 0 mL/min (70-130); Carbon Dioxide 26 mmol/L (22-29); Chloride 106 mmol/L (98-107); Potassium 3.7 mmol/L (3.5-5.1); Sodium 142 mmol/L (136-145)
[2020-10-18 20:47] LABS: ALT (SGPT) 34 U/L (8-55); AST (SGOT) 23 U/L (5-34); Acetaminophen Less than 6.0 mcg/mL (10.0-30.0); Albumin 4.3 g/dL (3.5-5.0); Alkaline Phosphatase 102 U/L (40-110); Bilirubin, Total 0.4 mg/dL (0.2-1.2); Calcium 9.3 mg/dL (7.8-10.44); Globulin 3.2 g/dL (2.4-3.5); Glucose 155 mg/dL (70-105); Protein, Total 7.5 g/dL (6.0-8.3)
[2020-10-18 20:48] LABS: Alcohol Less than 10 mg/dL (Less than 10); Salicylate Less than 8.0 mg/dL (15.0-30.0)
[2020-10-18] MEDS ORDERED: hydrOXYzine 25 MG TAB ONE (23:19)
[2020-10-19] MEDS ORDERED: hydrOXYzine 25 MG TAB ONE ×3 (06:05→17:45)
[2020-10-19] MEDS ORDERED: clonazePAM 1 MG TAB ONE ×3 (10:12→19:28)
== END 2020-10-20 15:15 | disposition home or self-care (01) ==
LOC: ERS 10:54
DX: R31.9 Hematuria, unspecified (principal); I10 Essential (primary) hypertension
CPT/HCPCS: 70450; 80053; 80306; 80307; 81003; 84443; 85025; 85610; 85730; 87086; J1630; J2060

== ENCOUNTER 2021-08-05 12:58 | Outpatient (CLI) | payer OTHER | END 2021-08-05 12:59 | disposition home or self-care (01) | LOC: BICMAMMO 12:58 | PROVIDERS: ATTEND Physician Assistant | DX: Z12.31 Encounter for screening mammogram for malignant neoplasm of breast (principal) | CPT/HCPCS: 77063; 77067 ==

== ENCOUNTER 2021-08-15 21:43 | Inpatient (IN) | payer OTHER ==
[2021-08-16] MEDS ORDERED: HYDROcodone/Acetaminophen 7.5/325 mg Tablet PO PRN (00:01)
[2021-08-16] MEDS ORDERED: Bisacodyl 5 MG TAB PO PRN (00:01)
[2021-08-16] MEDS ORDERED: Ondansetron PF 4 MG/2 ML Vial IVP PRN (00:01)
[2021-08-16] MEDS ORDERED: Guaifenesin DM 100-10/5 ML UDCUP PO PRN (00:01)
[2021-08-16] MEDS ORDERED: Senokot S 8.6-50 MG TAB PO PRN (00:01)
[2021-08-16] MEDS ORDERED: Enoxaparin Sodium 40 MG/0.4 ML SYRINGE SC SCH (00:15)
[2021-08-16] MEDS ORDERED: hydrALAZINE 20 MG/ML VIAL SLOW IVP PRN (00:15)
[2021-08-16] MEDS ORDERED: Melatonin 3 MG TAB PO PRN (00:15)
[2021-08-16] MEDS ORDERED: Dextrose 5% in Water 1,000 ML IV PRN (00:36)
[2021-08-16] MEDS ORDERED: Dextrose 50% Abboject 50 ML SYRINGE SLOW IVP PRN (00:36)
[2021-08-16] MEDS ORDERED: Nitroglycerin 0.4 MG TAB (25 Tab Bottle) SL PRN (00:42)
[2021-08-16] MEDS ORDERED: Albuterol 200 PUFF (6.7GM INHALER) INH PRN (00:48)
[2021-08-16] MEDS: HumaLOG 300 UNITS/3 ML VIAL SC PRN ×4 (01:07→20:38)
[2021-08-16] MEDS: Nicotine 21 MG PATCH TD SCH (01:07)
[2021-08-16 02:21] LABS: Troponin I 0.012 ng/mL (< 0.028)
[2021-08-16] MEDS: HYDROcodone/Acetaminophen 5/325 mg Tablet PO PRN ×4 (04:08→20:22)
[2021-08-16 05:35] LABS: #Basophils 0.1 thou/uL (0.0-0.2); #Eosinphils 0.2 thou/uL (0.0-0.7); #Lymphocytes 4.1 thou/uL (1.20-3.40); #Neutrophils 3.1 thou/uL (1.40-6.50); %Basophils 0.9 % (0.0-1.0); %Eosinophils 1.9 % (0.0-10.0); %Lymphocytes 48.8 % (21.0-51.0); %Monocytes 11.4 % (0.0-10.0); %Neutrophils 36.9 % (42.0-75.0); Hemoglobin 15.6 g/dL (12.0-16.0); Mean Corpuscular HGB CONC 33.3 g/dL (32.0-36.0); Mean Corpuscular Hemoglobin 33.1 pg (27.0-31.0); Mean Corpuscular Volume 99.4 fL (78.0-98.0); Mean Platelet Volume 7.8 fL (7.4-10.4); Platelet Count 183 thou/uL (130-400); RBC Distribution Width 12.8 % (11.5-14.5); Red Blood Cell (RBC) Count 4.72 mill/uL (4.20-5.40); White Blood Cell (WBC) Count 8.5 thou/uL (4.8-10.8)
[2021-08-16 05:54] LABS: ALT (SGPT) 14 U/L (8-55); AST (SGOT) 21 U/L (5-34); Albumin 3.3 g/dL (3.4-4.8); Alkaline Phosphatase 61 U/L (40-110); Anion Gap 16 mmol/L (10-20); BUN (Urea Nitrogen) 9 mg/dL (9.8-20.1); Bilirubin, Total 0.2 mg/dL (0.2-1.2); Calc. Creatinine Clearance 82 mL/min (70-130); Calcium 8.9 mg/dL (7.8-10.44); Carbon Dioxide 19 mmol/L (23-31); Cardiac Risk 5.5 (Less than 4.5); Chloride 104 mmol/L (98-107); Cholesterol 126 mg/dl (< 200 Desired); Globulin 3.5 g/dL (2.4-3.5); Glucose 213 mg/dL (80-115); HDL Cholesterol 23 mg/dL (>60 Neg Risk); LDL Cholesterol, Calculated 63 mg/dL; Potassium 4.4 mmol/L (3.5-5.1); Protein, Total 6.8 g/dL (5.8-8.1); Sodium 135 mmol/L (136-145); Triglycerides 198 mg/dL (Less than 150); Troponin I Less than 0.010 ng/mL (< 0.028)
[2021-08-16] MEDS: Famotidine/PF 20 mg/2ml Vial SLOW IVP SCH ×2 (07:49→20:23)
[2021-08-16] MEDS: Apixaban 5 MG TAB PO SCH ×2 (07:49→20:23)
[2021-08-16] MEDS: Aspirin Chewable 81 MG TAB PO SCH (07:49)
[2021-08-16] MEDS: Dronedarone HCl 400 MG TAB PO SCH ×2 (07:50→16:00)
[2021-08-16] MEDS: Metoprolol Tartrate 25 MG TAB PO SCH ×2 (08:04→20:23)
[2021-08-16] MEDS: OLANZapine 5 MG TAB PO SCH ×2 (08:54→09:55)
[2021-08-16] MEDS ORDERED: Digoxin 0.25 MG TAB PO SCH (09:00)
[2021-08-16] MEDS ORDERED: SEMAGLUTIDE 7 MG PO SCH (09:00)
[2021-08-16] MEDS ORDERED: clonazePAM 1 MG TAB PO SCH (09:00)
[2021-08-16] MEDS ORDERED: Non-Formulary Item 1 EACH (Olanzapine [Olanzapine] 15 MG Tablet) PO SCH (09:00)
[2021-08-16 13:10] LABS: SARS-CoV-2 PCR by NAA Not Detected (NotDetected)
[2021-08-16] MEDS ORDERED: Furosemide 40 MG/4 ML VIAL SLOW IVP SCH (13:15)
[2021-08-17] MEDS: Nicotine 21 MG PATCH TD SCH ×2 (00:11→23:27)
[2021-08-17] MEDS: HYDROcodone/Acetaminophen 5/325 mg Tablet PO PRN ×5 (00:28→22:04)
[2021-08-17] MEDS: HumaLOG 300 UNITS/3 ML VIAL SC PRN ×3 (06:37→21:11)
[2021-08-17] MEDS: Metoprolol Tartrate 25 MG TAB PO SCH ×2 (08:26→21:10)
[2021-08-17] MEDS: Famotidine/PF 20 mg/2ml Vial SLOW IVP SCH ×2 (08:26→21:10)
[2021-08-17] MEDS: Aspirin Chewable 81 MG TAB PO SCH (08:26)
[2021-08-17] MEDS: OLANZapine 5 MG TAB PO SCH (08:26)
[2021-08-17] MEDS: Dronedarone HCl 400 MG TAB PO SCH ×2 (08:26→16:09)
[2021-08-17] MEDS: Apixaban 5 MG TAB PO SCH ×2 (08:26→21:10)
[2021-08-17] MEDS: Lantus 1000 UNITS/10 ML VIAL SC SCH ×2 (08:27→21:11)
[2021-08-17] MEDS: Acetaminophen 325 MG TAB PO PRN (13:40)
[2021-08-18] MEDS: HYDROcodone/Acetaminophen 5/325 mg Tablet PO PRN ×3 (03:00→21:47)
[2021-08-18 07:57] LABS: Hemoglobin 15.9 g/dL (12.0-16.0); Mean Corpuscular HGB CONC 32.4 g/dL (32.0-36.0); Mean Corpuscular Hemoglobin 32.2 pg (27.0-31.0); Mean Corpuscular Volume 99.6 fL (78.0-98.0); Mean Platelet Volume 7.7 fL (7.4-10.4); Platelet Count 207 thou/uL (130-400); RBC Distribution Width 12.8 % (11.5-14.5); Red Blood Cell (RBC) Count 4.93 mill/uL (4.20-5.40); White Blood Cell (WBC) Count 7.8 thou/uL (4.8-10.8)
[2021-08-18 08:11] LABS: Anion Gap 14 mmol/L (10-20); BUN (Urea Nitrogen) 12 mg/dL (9.8-20.1); Calc. Creatinine Clearance 79 mL/min (70-130); Calcium 9.3 mg/dL (7.8-10.44); Carbon Dioxide 23 mmol/L (23-31); Chloride 105 mmol/L (98-107); Glucose 228 mg/dL (80-115); Potassium 4.1 mmol/L (3.5-5.1); Sodium 138 mmol/L (136-145)
[2021-08-18] MEDS: OLANZapine 5 MG TAB PO SCH (09:15)
[2021-08-18] MEDS: Dronedarone HCl 400 MG TAB PO SCH ×2 (09:15→17:52)
[2021-08-18] MEDS: Aspirin Chewable 81 MG TAB PO SCH (09:16)
[2021-08-18] MEDS: Metoprolol Tartrate 25 MG TAB PO SCH ×2 (09:16→21:47)
[2021-08-18] MEDS: Apixaban 5 MG TAB PO SCH ×2 (09:16→21:47)
[2021-08-18] MEDS: Lantus 1000 UNITS/10 ML VIAL SC SCH ×2 (09:16→21:49)
[2021-08-18] MEDS: glipiZIDE 5 MG TAB PO SCH (09:20)
[2021-08-18 09:27] LABS: Band 2 % (5-11); Lymphocytes 56 % (21-51); MDiff Complete? YES; Monocytes 13 % (0-10); Neutrophil 28 % (42-75); RBC Morphology Normal; Reactive Lymphocytes 1 % (0-10)
[2021-08-18] MEDS ORDERED: PROPOFOL 200 MG/20 ML VIAL ONE (10:43)
[2021-08-18] MEDS ORDERED: Phenylephrine 10 MG/ML VIAL ONE (10:43)
[2021-08-18] MEDS: Acetaminophen 325 MG TAB PO PRN (11:34)
[2021-08-18] MEDS: Semaglutide [Rybelsus] 7 MG Tablet PO SCH ×2 (14:11→14:12)
[2021-08-18] MEDS ORDERED: Ketamine 50 MG/ML (10ML VIAL) ONE (15:49)
[2021-08-18] MEDS ORDERED: PROPOFOL 20 ML ONE (15:49)
[2021-08-18] MEDS: HumaLOG 300 UNITS/3 ML VIAL SC PRN (21:48)
[2021-08-18] MEDS: Nicotine 21 MG PATCH TD SCH (23:35)
[2021-08-19] MEDS: HYDROcodone/Acetaminophen 5/325 mg Tablet PO PRN (02:21)
[2021-08-19 05:57] LABS: Anion Gap 13 mmol/L (10-20); BUN (Urea Nitrogen) 14 mg/dL (9.8-20.1); Calc. Creatinine Clearance 84 mL/min (70-130); Calcium 9.3 mg/dL (7.8-10.44); Carbon Dioxide 25 mmol/L (23-31); Chloride 106 mmol/L (98-107); Glucose 231 mg/dL (80-115); Sodium 140 mmol/L (136-145)
[2021-08-19] MEDS: HumaLOG 300 UNITS/3 ML VIAL SC PRN ×2 (06:07→10:36)
[2021-08-19] MEDS: Apixaban 5 MG TAB PO SCH (09:30)
[2021-08-19] MEDS: Aspirin Chewable 81 MG TAB PO SCH (09:30)
[2021-08-19] MEDS: Dronedarone HCl 400 MG TAB PO SCH (09:30)
[2021-08-19] MEDS: Metoprolol Tartrate 25 MG TAB PO SCH (09:31)
[2021-08-19] MEDS: OLANZapine 5 MG TAB PO SCH (09:31)
[2021-08-19] MEDS: Acetaminophen 325 MG TAB PO PRN (09:31)
[2021-08-19] MEDS: Lantus 1000 UNITS/10 ML VIAL SC SCH (09:34)
[2021-08-19] MEDS: glipiZIDE 5 MG TAB PO SCH (10:56)
[2021-08-19 11:47] VITALS: BP 118/66; TEMP 97.9
[2021-08-19] MEDS ORDERED: glipiZIDE 5 MG TAB PO SCH (16:30)
== END 2021-08-19 13:36 | disposition home or self-care (01) | DRG 308 ==
LOC: 2SW 21:43 → OBSVTOIN 08-16 16:56 → 2NO 08-17 00:22
PROVIDERS: ADMIT Internal Medicine; ATTEND Internal Medicine
PROC: 5A2204Z Restoration of Cardiac Rhythm, Single (ICD-10-PCS; principal; 2021-08-18)
PROC: B24BZZ4 Ultrasonography of Heart with Aorta, Transesophageal (ICD-10-PCS; 2021-08-18)
DX: I48.92 Unspecified atrial flutter (principal); G93.41 Metabolic encephalopathy; Z20.822 Contact with and (suspected) exposure to COVID-19; I50.33 Acute on chronic diastolic (congestive) heart failure; I11.0 Hypertensive heart disease with heart failure; F17.210 Nicotine dependence, cigarettes, uncomplicated; I25.10 Atherosclerotic heart disease of native coronary artery without angina pectoris; E66.9 Obesity, unspecified; F25.0 Schizoaffective disorder, bipolar type; E11.65 Type 2 diabetes mellitus with hyperglycemia; E11.51 Type 2 diabetes mellitus with diabetic peripheral angiopathy without gangrene; E78.2 Mixed hyperlipidemia; I48.0 Paroxysmal atrial fibrillation; Z90.49 Acquired absence of other specified parts of digestive tract; Z90.710 Acquired absence of both cervix and uterus; Z83.6 Family history of other diseases of the respiratory system; Z80.1 Family history of malignant neoplasm of trachea, bronchus and lung; Z68.30 Body mass index [BMI] 30.0-30.9, adult; Z88.5 Allergy status to narcotic agent; Z91.018 Allergy to other foods; Z79.01 Long term (current) use of anticoagulants; Z79.82 Long term (current) use of aspirin; Z79.4 Long term (current) use of insulin; Z79.51 Long term (current) use of inhaled steroids; Z79.899 Other long term (current) drug therapy
CPT/HCPCS: 36415; 36416; 80048; 80053; 80061; 84484; 85025; 92960; 93005; 93010; 93312; 94640; 96372; 96374; 96375; G0378; J1650; J1815; J1940; J2370; J2704; J7620; S0028; U0003; U0005

== ENCOUNTER 2023-08-21 11:56 | Outpatient (CLI) | payer OTHER | END 2023-08-21 11:57 | disposition home or self-care (01) | LOC: BICMAMMO 11:56 | PROVIDERS: ATTEND Physician Assistant | DX: Z12.31 Encounter for screening mammogram for malignant neoplasm of breast (principal) | CPT/HCPCS: 77067 ==